=== PATIENT | male | born 1940 | race Caucasian/White ===

== ENCOUNTER 2017-08-08 10:22 | Inpatient (IN) | payer MEDICARE, OTHER ==
[~2017-08-08 10:22] MED LIST: Acetaminophen 500 MG Tab PO SCH; Famotidine 20 MG/2 ML SDV IVPUSH SCH; Ketorolac 30 MG/ML SDV IVPUSH SCH; Ropivacaine 49.25 ML, Ketorolac 30 MG, EPINEPHrine 0.5 MG, cloNIDine 80 MCG in Sodium C... INJECT ONE; Scopolamine 1.5 MG Transdermal Patch TRDERM SCH; ceFAZolin 2 GM in Premix Bag 1 BAG IV SCH; oxyCODONE ER 20 MG TAB.ER PO SCH
[2017-08-08] MEDS: Lactated Ringers 1,000 ML IV SCH ×2 (10:58→16:57)
--- NOTE | 2017-08-08 11:09 | PCM.PREANE ---
Preanesthetic Assessment - Procedure Proposed Procedure: Right TKA - Anesthesia/Transfusion/Family Hx Anesthesia History: Prior Anesthesia Without Reaction Family History of Anesthesia Reaction: No Transfusion History: No Prior Transfusion(s) Intubation History: Unknown - Review of Systems General: Other (Obesity) Pulmonary: Other (COPD/Smoker/Sleep apnea - CPAP daily; uses full face mask, has his CPAP unit with him) Cardiovascular: Other (Hypertension and hypercholesterolemia) Gastrointestinal: No Symptoms Neurological: Gait Disturbance (due to knee pain) Other: Reports: None - Physical Assessment NPO Status Date: 08/07/17 NPO Status Time: 07:00 (took AM pill) Height: 5 ft 9 in Weight: 208 lb ASA Class: 3 Mental Status: Alert & Oriented x3 Airway Class: Mallampati = 2 Dentition: Reports: Normal Dentition, [place](s) (none loose) Thyro-Mental Finger Breadths: 3 Mouth Opening Finger Breadths: 3 (sloped soft palate) Lungs: Clear to Auscultation, Normal Respiratory Effort Cardiovascular: Regular Rate, Regular Rhythm, No Murmurs - Allergies Allergies/Adverse Reactions: Allergies Allergy/AdvReac Type Severity Reaction Status Date / Time No Known Allergies Allergy Verified 08/08/17 11:45 - Blood Blood Available: Yes Product(s) Available: PRBC (T and S) - Anesthesia Plan Pre-Op Medication Ordered: Other (per surgeon protocol) Beta Fabián: Metoprolol - Acknowledgements Anesthesia Type Planned: General Anesthesia (probable due to OAS hx), Spinal Pt an Appropriate Candidate for the Planned Anesthesia: Yes Alternatives and Risks of Anesthesia Discussed w Pt/Guardian: Yes Pt/Guardian Understands and Agrees with Anesthesia Plan: Yes PreAnesthesia Questionnaire HEENT History: Reports: Cataract Other HEENT History: sometimes wears glasses Cardiovascular History: Reports: High Cholesterol, Hypertension Respiratory History: Reports: Sleep Apnea Other Respiratory History: uses CPAP Gastrointestinal History: Reports: None Genitourinary History: Reports: BPH Other Genitourinary History: BPH Musculoskeletal History: Reports: Arthritis, Gout Other Musculoskeletal History: chronic hip pain Neurological History: Reports: None Psychiatric History: Reports: None Endocrine/Metabolic History: Reports: Obesity/BMI 30+ Other Endocrine/Metabolic History: Gout Hematologic History: Reports: None Immunologic History: Reports: None Oncologic (Cancer) History: Reports: None Dermatologic History: Reports: None - Past Surgical History Head Surgeries/Procedures: Reports: None HEENT Surgical History: Reports: Naso-Sinus Surgery, Tonsillectomy GI Surgical History: Reports: Colonoscopy Musculoskeletal Surgical History: Reports: Carpal Tunnel, Knee Replacement Other Musculoskeletal Surgeries/Procedures:: bilateral carpal tunnel release, Left TKA, replacement of left great toe joint, hammer toe left foot, second toe - SUBSTANCE USE Smoking Status *Q: Current Some Day Smoker Tobacco Use Within Last Twelve Months: Cigars, Pipe Days Per Week of Alcohol Use: 1 Number of Drinks Per Day: 1 Total Drinks Per Week: 1 Recreational Drug Use History: No - HOME MEDS Home Medications: Home Meds Allopurinol [Zyloprim] 300 mg PO DAILY 04/22/16 [History] Meloxicam 15 mg PO DAILY 04/22/16 [History] Metoprolol Succinate [Toprol XL 100mg] 50 mg PO DAILY 04/22/16 [History] Pravastatin Sodium [Pravachol] 40 mg PO BEDTIME 04/22/16 [History] Ramipril [Altace] 10 mg PO DAILY 04/22/16 [History] Tamsulosin HCl 0.4 mg PO DAILY 04/22/16 [History] Verapamil HCl [Calan Sr] 240 mg PO BEDTIME 04/22/16 [History] Zolpidem Tartrate 1 tab PO BEDTIME PRN 04/22/16 [History] - CURRENT (IN HOUSE) MEDS Current Meds: Current Medications Acetaminophen (Tylenol Extra Strength) 1,000 mg PO ONARRIVE [facility] Famotidine (Pepcid) 40 mg IVPUSH ONARRIVE [facility] Cefazolin Sodium/Dextrose 2 gm (/ Premix) 50 mls @ 100 mls/hr IV ONCALL [facility] Lactated Ringer's (Ringers, Lactated) 1,000 mls @ 100 mls/hr IV ASDIRECTED [facility] Ketorolac Tromethamine (Toradol) 30 mg IVPUSH ONARRIVE [facility] Oxycodone HCl (Oxycontin) 20 mg PO ONARRIVE [facility] Scopolamine (Transderm-Scop) 1.5 mg TRDERM ONARRIVE [facility] Tranexamic Acid (Cyklokapron) 4,000 mg IV SEECOMMENT MORGAN Discontinued Medications Ropivacaine 49.25 ml/Ketorolac Tromethamine 30 mg/Epinephrine HCl 0.5 mg/ Clonidine HCl 80 mcg/ Sodium Chloride 100 mls @ 50 mls/min INJECT ONETIME ONE Stop: 08/08/17 06:01
[2017-08-08] MEDS ORDERED: fentaNYL 100 MCG/2 ML SDV ONE (11:35)
[2017-08-08] MEDS ORDERED: Propofol 200 MG/20 ML SDV ONE ×3 (11:35→14:44)
[2017-08-08] MEDS ORDERED: Midazolam 1 MG/ML 2 ML SDV ONE ×2 (11:35)
[2017-08-08] MEDS ORDERED: fentaNYL 250 MCG/5 ML SDV ONE (11:35)
[2017-08-08] MEDS ORDERED: Lidocaine 2% 5 ML SDV ONE (11:37)
[2017-08-08] MEDS ORDERED: ceFAZolin 1 GM Vial ONE (11:38)
[2017-08-08] MEDS ORDERED: ePHEDrine 50 MG/ML SDV ONE (13:15)
[2017-08-08] MEDS ORDERED: fentaNYL 100 MCG/2 ML SDV IVPUSH PRN (13:57)
[2017-08-08] MEDS ORDERED: Atropine 0.4 MG/ML SDV ONE (14:11)
[2017-08-08] MEDS ORDERED: Bisacodyl 10 MG Supp RECTAL PRN (15:25)
[2017-08-08] MEDS ORDERED: diphenhydrAMINE 25 MG Cap PO PRN (15:25)
[2017-08-08] MEDS ORDERED: Ondansetron 4 MG/2 ML SDV IV PRN (15:25)
--- NOTE | 2017-08-08 15:29 | PCM.OPNOTE ---
- General Post-Op/Procedure Note Date of Surgery/Procedure: 08/08/17 Operative Procedure(s): R TKA Post-Op Diagnosis: DJD R knee Anesthesia Technique: Moderate Sedation, Spinal Primary Surgeon: Marleny Livingston [employer] Operator: Sundeep Guzman in mLs: 50 Condition: Good Free Text/Narrative:: tt=60 min #[id number] Intake & Output 08/08/17 08/08/17 08/08/17 06:59 14:59 22:59 Output Total 125 Balance -125
--- NOTE | 2017-08-08 16:02 | PCM.POSTAN ---
POST ANESTHESIA ASSESSMENT - MENTAL STATUS Mental Status: Alert - VITAL SIGNS Pulse Rate: 71 SaO2: 94 Resp Rate: 16 Blood Pressure: 92/72 - RESPIRATORY Respiratory Status: Respiratory Rate WNL - CARDIOVASCULAR CV Status: Pulse Rate WNL - GASTROINTESTINAL GI Status: No Symptoms - POST OP HYDRATION Hydration Status: Adequate & Stable (moving legs. sensory level approx t 10)
[2017-08-08] MEDS: Acetaminophen 500 MG Tab PO SCH ×2 (16:51→21:22)
[2017-08-08] MEDS: Ketorolac 30 MG/ML SDV IVPUSH SCH ×2 (16:52→21:23)
--- NOTE | 2017-08-08 17:02 | CR ---
EXAMINATION: Right knee HISTORY: Total knee arthroplasty COMPARISON: 05/03/2017 TECHNIQUE: 2 views FINDINGS/IMPRESSION: Right total knee hardware is demonstrated in good position and alignment. Operat mike soft tissue changes are noted.
[2017-08-08] MEDS: oxyCODONE 5 MG Tab PO PRN (17:49)
[2017-08-08] MEDS: Docusate Sodium 100 MG Cap PO SCH (20:19)
[2017-08-08] MEDS: Verapamil 240 MG Tab.ER PO SCH (20:19)
[2017-08-08] MEDS: Pravastatin 40 MG Tab PO SCH (20:19)
[2017-08-08] MEDS: oxyCODONE ER 10 MG TAB.ER PO SCH (20:19)
[2017-08-08] MEDS: Aluminum Hydroxide/Magnesium Hydroxide/Simethicone Susp 30 ML Cup PO PRN (21:28)
[2017-08-08] MEDS: ceFAZolin 2 GM in Premix Bag 1 BAG IV SCH (21:29)
[2017-08-08] MEDS ORDERED: Sodium Chloride 0.9% 1,000 ML IV ONE (21:56)
[2017-08-09] MEDS: oxyCODONE 5 MG Tab PO PRN ×6 (00:23→23:27)
[2017-08-09] MEDS: Ketorolac 30 MG/ML SDV IVPUSH SCH (03:59)
[2017-08-09] MEDS: Acetaminophen 500 MG Tab PO SCH ×4 (03:59→20:56)
[2017-08-09] MEDS: ceFAZolin 2 GM in Premix Bag 1 BAG IV SCH (05:01)
[2017-08-09] MEDS: Lactated Ringers 1,000 ML IV SCH (05:40)
--- NOTE | 2017-08-09 07:52 | PCM48HPAN ---
Post Anesthesia Note - EVALUATION WITHIN 48HRS OF ANESTHETIC Vital Signs in Normal Range: Yes Patient Participated in Evaluation: Yes Respiratory Function Stable: Yes Airway Patent: Yes Cardiovascular Function Stable: Yes (patients only complaint is that he feels dizzy at times) Hydration Status Stable: Yes Pain Control Satisfactory: Yes Nausea and Vomiting Control Satisfactory: Yes Mental Status Recovered: Yes
[2017-08-09] MEDS ORDERED: Sodium Chloride 0.9% 2.5 ML Syringe FLUSH PRN (08:15)
[2017-08-09] MEDS ORDERED: Sodium Chloride 0.9% 10 ML Syringe FLUSH PRN (08:15)
[2017-08-09] MEDS: Allopurinol 300 MG Tab PO SCH (08:22)
[2017-08-09] MEDS: Aspirin 325 MG Tab PO SCH ×2 (08:22→20:57)
[2017-08-09] MEDS: oxyCODONE ER 10 MG TAB.ER PO SCH ×2 (08:22→20:55)
[2017-08-09] MEDS: Docusate Sodium 100 MG Cap PO SCH ×2 (08:22→20:57)
[2017-08-09] MEDS: Tamsulosin 0.4 MG Cap.ER PO SCH (08:23)
[2017-08-09] MEDS: Celecoxib 100 MG Cap PO SCH (08:23)
--- NOTE | 2017-08-09 08:43 | PCM.SURGPN ---
<Sundeep Guzman - Last Filed: 08/09/17 08:44> - General Info Date of Service: 08/09/17 Date of Surgery/Procedure: 08/08/17 POD#: 1 Functional Status: Reports: Pain Controlled, Tolerating Diet, Ambulating - Review of Systems General: Reports: No Symptoms Pulmonary: Reports: No Symptoms Cardiovascular: Reports: No Symptoms Gastrointestinal: Reports: No Symptoms Genitourinary: Reports: No Symptoms Musculoskeletal: Reports: Leg Pain, Joint Pain, Joint Swelling Neurological: Reports: No Symptoms Psychiatric: Reports: No Symptoms - Patient Data Vitals - Most Recent: Last Vital Signs Temp 36.3 C 08/09/17 08:00 Pulse 66 08/09/17 08:00 Resp 18 08/09/17 08:00 BP 110/60 08/09/17 08:26 Pulse Ox 95 08/09/17 08:00 Weight - Most Recent: 94.347 kg I&O - Last 24 Hours: Intake & Output 08/08/17 08/09/17 08/09/17 22:59 06:59 14:59 Intake Total 1650 3065 Output Total 90 375 Balance 1560 2690 Lab Results Last 24 Hrs: Laboratory Results - last 24 hr 08/08/17 08/09/17 Range/Units 10:58 07:05 Hgb 12.4 L (13.0-17.0) g/dL Hct 37.8 L (38.0-50.0) % Blood Type A POSITIVE Antibody Screen NEGATIVE Med Orders - Current: Current Medications Acetaminophen (Tylenol Extra Strength) 1,000 mg PO Q6H [facility] Last Admin: 08/09/17 08:39 Dose: 1,000 mg Al Hydroxide/Mg Hydroxide (Mag-Al Plus) 30 ml PO Q4H PRN PRN Reason: indigestion Last Admin: 08/08/17 21:28 Dose: 30 ml Allopurinol (Zyloprim) 300 mg PO DAILY [facility] Last Admin: 08/09/17 08:22 Dose: 300 mg Aspirin (Aspirin) 325 mg PO BID [facility] Last Admin: 08/09/17 08:22 Dose: 325 mg Bisacodyl (Dulcolax) 10 mg RECTAL DAILY PRN PRN Reason: Constipation Celecoxib (Celebrex) 200 mg PO DAILY [facility] Last Admin: 08/09/17 08:23 Dose: 200 mg Diphenhydramine HCl (Benadryl) 25 - 50 mg PO Q6H PRN PRN Reason: Itching Docusate Sodium (Colace) 100 mg PO BID [facility] Last Admin: 08/09/17 08:22 Dose: 100 mg Lactated Ringer's (Ringers, Lactated) 1,000 mls @ 100 mls/hr IV ASDIRECTED [facility] Last Admin: 08/09/17 05:40 Dose: 100 mls/hr Ketorolac Tromethamine (Toradol) 30 mg IVPUSH Q6H [facility] Stop: 08/09/17 09:00 Last Admin: 08/09/17 03:59 Dose: Not Given Morphine Sulfate (Morphine) 1 - 3 mg IVPUSH Q3H PRN PRN Reason: Pain Ondansetron HCl (Zofran) 4 mg IV Q6HR PRN PRN Reason: NAUSEA/VOMITING Last Admin: 08/08/17 22:17 Dose: 4 mg Oxycodone HCl (Oxycodone) 5 - 10 mg PO Q4H PRN PRN Reason: Pain Last Admin: 08/09/17 06:08 Dose: 10 mg Oxycodone HCl (Oxycontin) 10 mg PO Q12HR [facility] Last Admin: 08/09/17 08:22 Dose: 10 mg Pravastatin Sodium (Pravachol) 40 mg PO BEDTIME [facility] Last Admin: 08/08/17 20:19 Dose: 40 mg Ramipril (Altace) 10 mg PO DAILY [facility] Last Admin: 08/09/17 08:26 Dose: Not Given Scopolamine (Transderm-Scop) 1.5 mg TRDERM ONARRIVE [facility] Last Admin: 08/08/17 10:59 Dose: 1.5 mg Sodium Chloride (Saline Flush) 10 ml FLUSH ASDIRECTED PRN PRN Reason: Keep Vein Open Sodium Chloride (Saline Flush) 2.5 ml FLUSH ASDIRECTED PRN PRN Reason: Keep Vein Open Tamsulosin HCl (Flomax) 0.4 mg PO DAILY [facility] Last Admin: 08/09/17 08:23 Dose: 0.4 mg Verapamil HCl (Calan Sr) 240 mg PO BEDTIME [facility] Last Admin: 08/08/17 20:19 Dose: 240 mg Zaleplon (Sonata) 5 mg PO BEDTIME PRN PRN Reason: Insomnia Discontinued Medications Acetaminophen (Tylenol Extra Strength) 1,000 mg PO ONARRIVE [facility] Last Admin: 08/08/17 11:18 Dose: 1,000 mg Atropine Sulfate (Atropine) Confirm Administered Dose 0.4 mg .ROUTE .STK-MED ONE Stop: 08/08/17 14:12 Cefazolin Sodium (Ancef) Confirm Administered Dose 2 gm .ROUTE .STK-MED ONE Stop: 08/08/17 11:39 Ephedrine Sulfate (Ephedrine Sulfate) Confirm Administered Dose 50 mg .ROUTE .STK-MED ONE Stop: 08/08/17 13:16 Famotidine (Pepcid) 40 mg IVPUSH ONARRIVE [facility] Last Admin: 08/08/17 11:10 Dose: 40 mg Fentanyl (Sublimaze) Confirm Administered Dose 250 mcg .ROUTE .STK-MED ONE Stop: 08/08/17 11:36 Fentanyl (Sublimaze) Confirm Administered Dose 100 mcg .ROUTE .STK-MED ONE Stop: 08/08/17 11:36 Fentanyl (Sublimaze) 50 mcg IVPUSH Q5M PRN PRN Reason: Pain (severe 7-10) Stop: 08/08/17 17:00 Glycopyrrolate () Confirm Administered Dose 1 mg .ROUTE .STK-MED ONE Stop: 08/08/17 14:09 Ropivacaine 49.25 ml/Ketorolac Tromethamine 30 mg/Epinephrine HCl 0.5 mg/ Clonidine HCl 80 mcg/ Sodium Chloride 100 mls @ 50 mls/min INJECT ONETIME ONE Stop: 08/08/17 06:01 Cefazolin Sodium/Dextrose 2 gm (/ Premix) 50 mls @ 100 mls/hr IV Q8H [facility] Stop: 08/09/17 05:59 Last Admin: 08/09/17 05:01 Dose: 100 mls/hr Sodium Chloride (Normal Saline) 1,000 mls @ 500 mls/hr IV ONETIME ONE Stop: 08/08/17 23:55 Last Admin: 08/08/17 22:14 Dose: 500 mls/hr Ketorolac Tromethamine (Toradol) 30 mg IVPUSH ONARRIVE [facility] Last Admin: 08/08/17 11:08 Dose: 30 mg Lidocaine (Xylocaine-Mpf 2%) Confirm Administered Dose 5 ml .ROUTE .STK-MED ONE Stop: 08/08/17 11:38 Metoprolol Succinate (Toprol Xl) 50 mg PO DAILY [facility] Midazolam HCl (Versed 1 Mg/Ml) Confirm Administered Dose 2 mg .ROUTE .STK-MED ONE Stop: 08/08/17 11:36 Midazolam HCl (Versed 1 Mg/Ml) Confirm Administered Dose 2 mg .ROUTE .STK-MED ONE Stop: 08/08/17 11:36 Oxycodone HCl (Oxycontin) 20 mg PO ONARRIVE [facility] Last Admin: 08/08/17 11:25 Dose: 20 mg Propofol (Diprivan 20 Ml) Confirm Administered Dose 200 mg .ROUTE .STK-MED ONE Stop: 08/08/17 11:36 Propofol (Diprivan 20 Ml) Confirm Administered Dose 400 mg .ROUTE .STK-MED ONE Stop: 08/08/17 13:30 Propofol (Diprivan 20 Ml) Confirm Administered Dose 200 mg .ROUTE .STK-MED ONE Stop: 08/08/17 14:45 Tranexamic Acid (Cyklokapron) 4,000 mg IV SEECOMMENT [facility] - Exam Wound/Incisions: Dressing Dry and Intact General: Alert, Oriented HEENT: Pupils Equal, Pupils Reactive Neck: Trachea Midline Lungs: Normal Respiratory Effort Cardiovascular: Regular Rate Extremities: Other (Right anterior tibialis, extensor hallucis longus and gastrocnemius strength +5/5 bilaterally. Sensation intact. Dorsalis pedis and posterior tibial pulses +2 bilaterally. ) Neurological: No New Focal Deficit Psy/Mental Status: Alert, Normal Affect, Normal Mood - Problem List Review Problem List Initiated/Reviewed/Updated: Yes - My Orders Last 24 Hours: Active Orders 24 hr Category Date Time Status Patient Status [ADT] Routine ADT 08/08/17 11:20 Active Activity as Tolerated [RC] .Routine Care 08/08/17 15:25 Active Bradycardia-Neuroaxis [employer] [RC] ROUTINE Care 08/08/17 13:57 Active Communication Order [RC] ROUTINE Care 08/08/17 15:27 Active Hypertension-Neuroaxis [employer] [RC] ROUTINE Care 08/08/17 13:57 Active Hypotension-Neuroaxis [employer] [RC] ROUTINE Care 08/08/17 13:57 Active Intake and Output [RC] Q12H Care 08/08/17 15:24 Active Neurovascular Check [RC] Q2HR Care 08/08/17 15:24 Active Notify Provider Vital Signs [RC] ASDIRECTED Care 08/08/17 15:25 Active Oxygen Therapy [RC] ASDIRECTED Care 08/08/17 13:58 Active RT Incentive Spirometry [RC] ASDIRECTED Care 08/08/17 15:24 Active Urinary Catheter Removal [RC] Per Unit Routine Care 08/09/17 08:15 Active Vital Signs [RC] PER UNIT ROUTINE Care 08/08/17 13:57 Active Vital Signs [RC] Q4H Care 08/08/17 15:24 Active PT Evaluation and Treatment [CONS] Routine Cons 08/08/17 15:24 Active HEMOGLOBIN/HEMATOCRIT,HH [HEME] DAILY Lab 08/10/17 07:00 Ordered HEMOGLOBIN/HEMATOCRIT,HH [HEME] DAILY Lab 08/11/17 07:00 Ordered Acetaminophen [Tylenol Extra Strength] Med 08/08/17 15:30 Active 1,000 mg PO Q6H Allopurinol [Zyloprim] Med 08/09/17 09:00 Active 300 mg PO DAILY Alum Hydrox/Mag Hydrox/Simeth [Mag-Al Plus] Med 08/08/17 15:25 Active 30 ml PO Q4H PRN Aspirin Med 08/09/17 09:00 Active 325 mg PO BID Bisacodyl [Dulcolax] Med 08/08/17 15:25 Active 10 mg RECTAL DAILY PRN Celecoxib [CeleBREX] Med 08/09/17 09:00 Active 200 mg PO DAILY Docusate Sodium [Colace] Med 08/08/17 21:00 Active 100 mg PO BID Ketorolac [Toradol] Med 08/08/17 15:30 Active 30 mg IVPUSH Q6H Morphine Med 08/08/17 15:25 Active 1 - 3 mg IVPUSH Q3H PRN Ondansetron [Zofran] Med 08/08/17 15:25 Active 4 mg IV Q6HR PRN Pravastatin [Pravachol] Med 08/08/17 21:00 Active 40 mg PO BEDTIME Ramipril [Altace] Med 08/09/17 09:00 Active 10 mg PO DAILY Sodium Chloride 0.9% [Saline Flush] Med 08/09/17 08:15 Active 10 ml FLUSH ASDIRECTED PRN Sodium Chloride 0.9% [Saline Flush] Med 08/09/17 08:15 Active 2.5 ml FLUSH ASDIRECTED PRN Tamsulosin [Flomax] Med 08/09/17 09:00 Active 0.4 mg PO DAILY Verapamil [Calan SR] Med 08/08/17 21:00 Active 240 mg PO BEDTIME Zaleplon [Sonata] Med 08/08/17 15:27 Active 5 mg PO BEDTIME PRN diphenhydrAMINE [Benadryl] Med 08/08/17 15:25 Active 25 - 50 mg PO Q6H PRN oxyCODONE Med 08/08/17 15:25 Active 5 - 10 mg PO Q4H PRN oxyCODONE ER [OxyCONTIN] Med 08/08/17 21:00 Active 10 mg PO Q12HR Convert IV to Saline Lock [OM.PC] Routine Oth 08/09/17 08:15 Ordered Ice Therapy [OM.PC] Routine Oth 08/08/17 15:24 Ordered Medication Orders Acetaminophen (Tylenol Extra Strength) 1,000 mg PO Q6H [facility] Last Admin: 08/09/17 08:39 Dose: 1,000 mg Admin: 08/09/17 03:59 Dose: Not Given Admin: 08/08/17 21:22 Dose: 1,000 mg Admin: 08/08/17 16:51 Dose: 1,000 mg Al Hydroxide/Mg Hydroxide (Mag-Al Plus) 30 ml PO Q4H PRN PRN Reason: indigestion Last Admin: 08/08/17 21:28 Dose: 30 ml Allopurinol (Zyloprim) 300 mg PO DAILY [facility] Last Admin: 08/09/17 08:22 Dose: 300 mg Aspirin (Aspirin) 325 mg PO BID [facility] Last Admin: 08/09/17 08:22 Dose: 325 mg Bisacodyl (Dulcolax) 10 mg RECTAL DAILY PRN PRN Reason: Constipation Celecoxib (Celebrex) 200 mg PO DAILY [facility] Last Admin: 08/09/17 08:23 Dose: 200 mg Diphenhydramine HCl (Benadryl) 25 - 50 mg PO Q6H PRN PRN Reason: Itching Docusate Sodium (Colace) 100 mg PO BID [facility] Last Admin: 08/09/17 08:22 Dose: 100 mg Admin: 08/08/17 20:19 Dose: 100 mg Lactated Ringer's (Ringers, Lactated) 1,000 mls @ 100 mls/hr IV ASDIRECTED [facility] Last Admin: 08/09/17 05:40 Dose: 100 mls/hr Infusion: 08/09/17 02:57 Dose: 100 mls/hr Admin: 08/08/17 16:57 Dose: 100 mls/hr Infusion: 08/08/17 16:57 Dose: 100 mls/hr Admin: 08/08/17 10:58 Dose: 100 mls/hr Ketorolac Tromethamine (Toradol) 30 mg IVPUSH Q6H [facility] Stop: 08/09/17 09:00 Last Admin: 08/09/17 03:59 Dose: Not Given Admin: 08/08/17 21:23 Dose: 30 mg Admin: 08/08/17 16:52 Dose: 30 mg Morphine Sulfate (Morphine) 1 - 3 mg IVPUSH Q3H PRN PRN Reason: Pain Ondansetron HCl (Zofran) 4 mg IV Q6HR PRN PRN Reason: NAUSEA/VOMITING Last Admin: 08/08/17 22:17 Dose: 4 mg Oxycodone HCl (Oxycodone) 5 - 10 mg PO Q4H PRN PRN Reason: Pain Last Admin: 08/09/17 06:08 Dose: 10 mg Admin: 08/09/17 00:23 Dose: 5 mg Admin: 08/08/17 17:49 Dose: 10 mg Oxycodone HCl (Oxycontin) 10 mg PO Q12HR [facility] Last Admin: 08/09/17 08:22 Dose: 10 mg Admin: 08/08/17 20:19 Dose: 10 mg Pravastatin Sodium (Pravachol) 40 mg PO BEDTIME [facility] Last Admin: 08/08/17 20:19 Dose: 40 mg Ramipril (Altace) 10 mg PO DAILY [facility] Last Admin: 08/09/17 08:26 Dose: Scopolamine (Transderm-Scop) 1.5 mg TRDERM ONARRIVE [facility] Last Admin: 08/08/17 10:59 Dose: 1.5 mg Sodium Chloride (Saline Flush) 10 ml FLUSH ASDIRECTED PRN PRN Reason: Keep Vein Open Sodium Chloride (Saline Flush) 2.5 ml FLUSH ASDIRECTED PRN PRN Reason: Keep Vein Open Tamsulosin HCl (Flomax) 0.4 mg PO DAILY [facility] Last Admin: 08/09/17 08:23 Dose: 0.4 mg Verapamil HCl (Calan Sr) 240 mg PO BEDTIME [facility] Last Admin: 08/08/17 20:19 Dose: 240 mg Zaleplon (Sonata) 5 mg PO BEDTIME PRN PRN Reason: Insomnia - Assessment Assessment (Free Text/Narrative):: Patient up to chair this AM. Pain well controlled overnight. Tolerating diet. Patient did receive bolus of 1 L normal saline last night due to low BP and UO. VSS. Hgb 12.4. UO 590 mL. - Plan Plan (Free Text/Narrative):: Continue physical therapy. Continue PO pain management. Start Aspirin 325mg PO BID for DVT prophylaxis. Due to low UO, repeat 1L NS fluid bolus today. Patient may go home today after therapy if UO increases. <Marleny Livingston - Last Filed: 08/09/17 17:23> - Patient Data Vitals - Most Recent: Last Vital Signs Temp 98.3 F 08/09/17 16:00 Pulse 80 08/09/17 16:00 Resp 18 08/09/17 16:00 BP 129/91 H 08/09/17 16:00 Pulse Ox 97 08/09/17 16:00 I&O - Last 24 Hours: Intake & Output 08/09/17 08/09/17 08/09/17 06:59 14:59 22:59 Intake Total 3065 1000 2100 Output Total 375 700 Balance 2690 1000 1400 Lab Results Last 24 Hrs: Laboratory Results - last 24 hr 08/09/17 Range/Units 07:05 Hgb 12.4 L (13.0-17.0) g/dL Hct 37.8 L (38.0-50.0) % Med Orders - Current: Current Medications Acetaminophen (Tylenol Extra Strength) 1,000 mg PO Q6H [facility] Last Admin: 08/09/17 14:47 Dose: 1,000 mg Al Hydroxide/Mg Hydroxide (Mag-Al Plus) 30 ml PO Q4H PRN PRN Reason: indigestion Last Admin: 08/08/17 21:28 Dose: 30 ml Allopurinol (Zyloprim) 300 mg PO DAILY [facility] Last Admin: 08/09/17 08:22 Dose: 300 mg Aspirin (Aspirin) 325 mg PO BID [facility] Last Admin: 08/09/17 08:22 Dose: 325 mg Bisacodyl (Dulcolax) 10 mg RECTAL DAILY PRN PRN Reason: Constipation Celecoxib (Celebrex) 200 mg PO DAILY [facility] Last Admin: 08/09/17 08:23 Dose: 200 mg Diphenhydramine HCl (Benadryl) 25 - 50 mg PO Q6H PRN PRN Reason: Itching Docusate Sodium (Colace) 100 mg PO BID [facility] Last Admin: 08/09/17 08:22 Dose: 100 mg Morphine Sulfate (Morphine) 1 - 3 mg IVPUSH Q3H PRN PRN Reason: Pain Last Admin: 08/09/17 09:44 Dose: 3 mg Ondansetron HCl (Zofran) 4 mg IV Q6HR PRN PRN Reason: NAUSEA/VOMITING Last Admin: 08/08/17 22:17 Dose: 4 mg Oxycodone HCl (Oxycodone) 5 - 10 mg PO Q4H PRN PRN Reason: Pain Last Admin: 08/09/17 14:47 Dose: 10 mg Oxycodone HCl (Oxycontin) 10 mg PO Q12HR [facility] Last Admin: 08/09/17 08:22 Dose: 10 mg Pravastatin Sodium (Pravachol) 40 mg PO BEDTIME [facility] Last Admin: 08/08/17 20:19 Dose: 40 mg Ramipril (Altace) 10 mg PO DAILY [facility] Last Admin: 08/09/17 08:26 Dose: Not Given Scopolamine (Transderm-Scop) 1.5 mg TRDERM ONARRIVE [facility] Last Admin: 08/08/17 10:59 Dose: 1.5 mg Sodium Chloride (Saline Flush) 10 ml FLUSH ASDIRECTED PRN PRN Reason: Keep Vein Open Sodium Chloride (Saline Flush) 2.5 ml FLUSH ASDIRECTED PRN PRN Reason: Keep Vein Open Tamsulosin HCl (Flomax) 0.4 mg PO DAILY [facility] Last Admin: 08/09/17 08:23 Dose: 0.4 mg Verapamil HCl (Calan Sr) 240 mg PO BEDTIME [facility] Last Admin: 08/08/17 20:19 Dose: 240 mg Zaleplon (Sonata) 5 mg PO BEDTIME PRN PRN Reason: Insomnia Discontinued Medications Acetaminophen (Tylenol Extra Strength) 1,000 mg PO ONARRIVE [facility] Last Admin: 08/08/17 11:18 Dose: 1,000 mg Atropine Sulfate (Atropine) Confirm Administered Dose 0.4 mg .ROUTE .STK-MED ONE Stop: 08/08/17 14:12 Cefazolin Sodium (Ancef) Confirm Administered Dose 2 gm .ROUTE .STK-MED ONE Stop: 08/08/17 11:39 Ephedrine Sulfate (Ephedrine Sulfate) Confirm Administered Dose 50 mg .ROUTE .STK-MED ONE Stop: 08/08/17 13:16 Famotidine (Pepcid) 40 mg IVPUSH ONARRIVE [facility] Last Admin: 08/08/17 11:10 Dose: 40 mg Fentanyl (Sublimaze) Confirm Administered Dose 250 mcg .ROUTE .STK-MED ONE Stop: 08/08/17 11:36 Fentanyl (Sublimaze) Confirm Administered Dose 100 mcg .ROUTE .STK-MED ONE Stop: 08/08/17 11:36 Fentanyl (Sublimaze) 50 mcg IVPUSH Q5M PRN PRN Reason: Pain (severe 7-10) Stop: 08/08/17 17:00 Glycopyrrolate () Confirm Administered Dose 1 mg .ROUTE .STK-MED ONE Stop: 08/08/17 14:09 Ropivacaine 49.25 ml/Ketorolac Tromethamine 30 mg/Epinephrine HCl 0.5 mg/ Clonidine HCl 80 mcg/ Sodium Chloride 100 mls @ 50 mls/min INJECT ONETIME ONE Stop: 08/08/17 06:01 Lactated Ringer's (Ringers, Lactated) 1,000 mls @ 100 mls/hr IV ASDIRECTED [facility] Last Admin: 08/09/17 05:40 Dose: 100 mls/hr Cefazolin Sodium/Dextrose 2 gm (/ Premix) 50 mls @ 100 mls/hr IV Q8H [facility] Stop: 08/09/17 05:59 Last Admin: 08/09/17 05:01 Dose: 100 mls/hr Sodium Chloride (Normal Saline) 1,000 mls @ 500 mls/hr IV ONETIME ONE Stop: 08/08/17 23:55 Last Admin: 08/08/17 22:14 Dose: 500 mls/hr Sodium Chloride (Normal Saline) 1,000 mls @ 500 mls/hr IV .Bolus ONE Stop: 08/09/17 10:47 Last Admin: 08/09/17 09:43 Dose: 500 mls/hr Ketorolac Tromethamine (Toradol) 30 mg IVPUSH ONARRIVE [facility] Last Admin: 08/08/17 11:08 Dose: 30 mg Ketorolac Tromethamine (Toradol) 30 mg IVPUSH Q6H [facility] Stop: 08/09/17 09:00 Last Admin: 08/09/17 03:59 Dose: Not Given Lidocaine (Xylocaine-Mpf 2%) Confirm Administered Dose 5 ml .ROUTE .STK-MED ONE Stop: 08/08/17 11:38 Metoprolol Succinate (Toprol Xl) 50 mg PO DAILY [facility] Midazolam HCl (Versed 1 Mg/Ml) Confirm Administered Dose 2 mg .ROUTE .STK-MED ONE Stop: 08/08/17 11:36 Midazolam HCl (Versed 1 Mg/Ml) Confirm Administered Dose 2 mg .ROUTE .STK-MED ONE Stop: 08/08/17 11:36 Oxycodone HCl (Oxycontin) 20 mg PO ONARRIVE [facility] Last Admin: 08/08/17 11:25 Dose: 20 mg Propofol (Diprivan 20 Ml) Confirm Administered Dose 200 mg .ROUTE .STK-MED ONE Stop: 08/08/17 11:36 Propofol (Diprivan 20 Ml) Confirm Administered Dose 400 mg .ROUTE .STK-MED ONE Stop: 08/08/17 13:30 Propofol (Diprivan 20 Ml) Confirm Administered Dose 200 mg .ROUTE .STK-MED ONE Stop: 08/08/17 14:45 Tranexamic Acid (Cyklokapron) 4,000 mg IV SEECOMMENT [facility] - My Orders Last 24 Hours: Active Orders 24 hr Category Date Time Status HEMOGLOBIN/HEMATOCRIT,HH [HEME] DAILY Lab 08/10/17 07:00 Ordered HEMOGLOBIN/HEMATOCRIT,HH [HEME] DAILY Lab 08/11/17 07:00 Ordered Allopurinol [Zyloprim] Med 08/09/17 09:00 Active 300 mg PO DAILY Aspirin Med 08/09/17 09:00 Active 325 mg PO BID Celecoxib [CeleBREX] Med 08/09/17 09:00 Active 200 mg PO DAILY Docusate Sodium [Colace] Med 08/08/17 21:00 Active 100 mg PO BID Pravastatin [Pravachol] Med 08/08/17 21:00 Active 40 mg PO BEDTIME Ramipril [Altace] Med 08/09/17 09:00 Active 10 mg PO DAILY Sodium Chloride 0.9% [Saline Flush] Med 08/09/17 08:15 Active 10 ml FLUSH ASDIRECTED PRN Sodium Chloride 0.9% [Saline Flush] Med 08/09/17 08:15 Active 2.5 ml FLUSH ASDIRECTED PRN Tamsulosin [Flomax] Med 08/09/17 09:00 Active 0.4 mg PO DAILY Verapamil [Calan SR] Med 08/08/17 21:00 Active 240 mg PO BEDTIME oxyCODONE ER [OxyCONTIN] Med 08/08/17 21:00 Active 10 mg PO Q12HR Convert IV to Saline Lock [OM.PC] Routine Oth 08/09/17 08:15 Ordered Medication Orders Acetaminophen (Tylenol Extra Strength) 1,000 mg PO Q6H [facility] Last Admin: 08/09/17 14:47 Dose: 1,000 mg Admin: 08/09/17 08:39 Dose: 1,000 mg Admin: 08/09/17 03:59 Dose: Not Given Admin: 08/08/17 21:22 Dose: 1,000 mg Admin: 08/08/17 16:51 Dose: 1,000 mg Al Hydroxide/Mg Hydroxide (Mag-Al Plus) 30 ml PO Q4H PRN PRN Reason: indigestion Last Admin: 08/08/17 21:28 Dose: 30 ml Allopurinol (Zyloprim) 300 mg PO DAILY [facility] Last Admin: 08/09/17 08:22 Dose: 300 mg Aspirin (Aspirin) 325 mg PO BID [facility] Last Admin: 08/09/17 08:22 Dose: 325 mg Bisacodyl (Dulcolax) 10 mg RECTAL DAILY PRN PRN Reason: Constipation Celecoxib (Celebrex) 200 mg PO DAILY [facility] Last Admin: 08/09/17 08:23 Dose: 200 mg Diphenhydramine HCl (Benadryl) 25 - 50 mg PO Q6H PRN PRN Reason: Itching Docusate Sodium (Colace) 100 mg PO BID [facility] Last Admin: 08/09/17 08:22 Dose: 100 mg Admin: 08/08/17 20:19 Dose: 100 mg Morphine Sulfate (Morphine) 1 - 3 mg IVPUSH Q3H PRN PRN Reason: Pain Last Admin: 08/09/17 09:44 Dose: 3 mg Ondansetron HCl (Zofran) 4 mg IV Q6HR PRN PRN Reason: NAUSEA/VOMITING Last Admin: 08/08/17 22:17 Dose: 4 mg Oxycodone HCl (Oxycodone) 5 - 10 mg PO Q4H PRN PRN Reason: Pain Last Admin: 08/09/17 14:47 Dose: 10 mg Admin: 08/09/17 10:48 Dose: 10 mg Admin: 08/09/17 06:08 Dose: 10 mg Admin: 08/09/17 00:23 Dose: 5 mg Admin: 08/08/17 17:49 Dose: 10 mg Oxycodone HCl (Oxycontin) 10 mg PO Q12HR [facility] Last Admin: 08/09/17 08:22 Dose: 10 mg Admin: 08/08/17 20:19 Dose: 10 mg Pravastatin Sodium (Pravachol) 40 mg PO BEDTIME [facility] Last Admin: 08/08/17 20:19 Dose: 40 mg Ramipril (Altace) 10 mg PO DAILY [facility] Last Admin: 08/09/17 08:26 Dose: Scopolamine (Transderm-Scop) 1.5 mg TRDERM ONARRIVE [facility] Last Admin: 08/08/17 10:59 Dose: 1.5 mg Sodium Chloride (Saline Flush) 10 ml FLUSH ASDIRECTED PRN PRN Reason: Keep Vein Open Sodium Chloride (Saline Flush) 2.5 ml FLUSH ASDIRECTED PRN PRN Reason: Keep Vein Open Tamsulosin HCl (Flomax) 0.4 mg PO DAILY [facility] Last Admin: 08/09/17 08:23 Dose: 0.4 mg Verapamil HCl (Calan Sr) 240 mg PO BEDTIME [facility] Last Admin: 08/08/17 20:19 Dose: 240 mg Zaleplon (Sonata) 5 mg PO BEDTIME PRN PRN Reason: Insomnia - Plan Plan (Free Text/Narrative):: 1730 Patient seen and examined. AGree with above note. Uop much improved. Negrete d/c' d. Hgb stable. Slow with PT and some pain issues so will keep until tomorrow. Dressing change in am. Patient agrees with plan. [email or web address]
[2017-08-09] MEDS ORDERED: Sodium Chloride 0.9% 1,000 ML IV ONE (08:48)
--- NOTE | 2017-08-09 08:56 | OR ---
SURGEON: Marleny Livingston MD DATE OF PROCEDURE: 08/08/2017 PREOPERATIVE DIAGNOSIS: Degenerative joint disease, right knee, tricompartmental. POSTOPERATIVE DIAGNOSIS: Degenerative joint disease, right knee, tricompartmental. PROCEDURE: Right total knee arthroplasty using patient-specific instrumentation. TEACHER ADULT EDUCATION: Sundeep Guzman PA-C. ANESTHESIA: Spinal with sedation. ESTIMATED BLOOD LOSS: 50 mL. TOURNIQUET TIME: 60 minutes. COMPLICATIONS: None. DVT PROPHYLAXIS: PAS boot and CHYNA hose to the nonoperative leg. IMPLANTS USED: Nivia Persona femoral component size 10 (LPS), tibial component, size H, 10 mm all-polyethylene articular surface, and 38 mm all-polyethylene patella. 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 Osteophyte formation was noted. There was complete eburnation of the bone along the medial femoral condyle and medial tibial plateau. BRIEF HISTORY: Lew is a 77-year-old male, who has had complaint of progressive right knee pain. He was found to have tricompartmental degenerative changes. He has undergone a left total knee arthroplasty in the past and has done well with this. Due to his lack of response to conservative treatment, I did recommend surgical intervention. The risks and goals of the procedure were discussed with the patient and were documented preoperatively. He agreed to proceed. DESCRIPTION OF PROCEDURE: The patient was properly identified and brought to the operating room. The patient was then transferred from the operating room cart and placed on the operating table in a supine position. Anesthesia was administered by the anesthesia staff. After adequate anesthesia was obtained, a well-padded tourniquet was applied to the surgical lower extremity. Negrete catheter was placed. The lower extremity was then prepped in standard fashion using ChloraPrep solution. It was then sterilely draped. A time-out was performed to ensure correct site and procedure. Preoperative antibiotics were given along with one gram of tranexamic acid IV. The surgical site had been marked preoperatively. An Esmarch was used to exsanguinate the right lower extremity and the tourniquet was inflated. An incision was made over the anterior aspect of the knee. The subcutaneous tissues were dissected down to the level of the fascia. A medial parapatellar approach to the knee was made. A portion of the infrapatellar fat pad was then excised. The distal femur was then exposed. The femoral patient-specific cutting guide was then placed. Pins were also placed. The distal femoral cutting block was placed and the distal femoral cut was made. Instrumentation was then removed. Both Whitesides' line and the epicondylar axis were then marked with electrocautery. The 4-in-1 cutting block was placed. This was placed in a slightly externally rotated position, which corresponded well with the previously drawn lines. The cutting guide was then pinned into position. An Pancho wing guide was used to check the depth of resection of our anterior condylar cut and it was felt that no notching would occur. The anterior condylar cut was then made followed by the posterior condylar cut. Both the posterior chamfer and anterior chamfer cuts were then made. The cutting block was then removed along with the excess bony remnants. We then turned our attention to the tibia. The anterior cruciate ligament and posterior cruciate ligament were released and a posterior cruciate ligament retractor was placed to allow the tibia to be pulled anteriorly. The tibial patient-specific guide was then placed on the proximal tibia. This fit anatomically. The pins were then placed. The proximal tibia cutting guide was then placed and screwed into position. The proximal tibial resection was then made with care being taken to protect the patellar tendon. The bony resection was then removed. The remainder of the medial and lateral meniscus were then excised. Care was taken to protect the popliteus tendon. The tibia was then sized to the appropriate size. The distal femur was then elevated. The posterior capsule was stripped off the distal femur both medially and laterally. The posterior capsule along with the medial and lateral gutters were then injected with a standard mixture consisting of clonidine, epinephrine, Toradol, and Ropivacaine, unless any allergies were found preoperatively. The femoral component was then placed onto the distal femur in a slightly lateral position. This fit the femur well. A box cut was then made without difficulty. This was then removed. The tibial trial along with the polyethylene liner was then placed. The knee came easily into full extension and was stable to varus and valgus stressing both in full extension and flexion. Any additional releases were performed at this time. We then returned our attention to the patella. The patella was everted and towel clamps were used to hold the patella in position. It was resected to a 15 millimeter thickness. It was then sized to the appropriate size. It was prepared in the usual fashion after placing the predetermined size clamps. This was placed in a slightly superior and medial position. The clamp was then removed. The patellar trial button was placed. The knee was taken through a range of motion using the no-touch technique. The patella tracked centrally. A drop carrie was then placed to check alignment. All instruments were then removed from the knee. The tibial sizer was then placed on the tibia. The tibia was prepared in the usual fashion using the reamer and broach. This was then removed. All bony surfaces were copiously irrigated with Pulsavac solution. They were then suctioned dry. Cement was prepared on the back table in the usual manner. Once it was prepared, the bone ends were again suctioned dry. The tibia was cemented into place first. This was malleted into position. Excess cement was then cleared. The femur was then placed in a similar manner. We placed the polyethylene trial into place and the knee was brought into full extension. An axial load was placed while keeping the knee in full extension. The patella button was also cemented into position and the clamp was used to hold this in place as the cement was allowed to cure. The wound was again copiously irrigated with saline solution using a Pulsavac final application reviewer. Following this 1 g of tranexamic acid was applied to the wound topically. After we had adequate curing of the cement, the knee was again taken through a range of motion. The size of the polyethylene was then determined. The polyethylene trial was then removed. The tibial tray was suctioned to make sure there was no remaining soft tissue or cement. Excess cement was cleared from around the edges of the prosthesis as well. The tourniquet was then deflated. We were able to observe for any excess bleeding and none was noted. Electrocautery was used to maintain hemostasis. An additional gram of tranexamic acid was given IV. The retractors were again placed and the predetermined polyethylene was then placed. This was locked into position without difficulty. The knee was again taken through a range of motion with no change from the prior exam. The fascial layer was closed with Number One Vicryl. The subcutaneous tissues were closed with 2-0 Vicryl. The skin was closed with trace. Xeroform gauze was placed over the wound and a bulky dressing was applied. The patient was then awakened from anesthesia and transferred back to the operating room cart. He was brought to the recovery room in stable condition. All needle and sponge counts were correct. DANE VAIL /[id number]
[2017-08-09] MEDS ORDERED: Metoprolol Succinate 50 MG Tab.ER PO SCH (09:00)
[2017-08-09] MEDS: Morphine 4 MG/ML Syringe IVPUSH PRN (09:44)
[2017-08-09] MEDS: Pravastatin 40 MG Tab PO SCH (20:55)
[2017-08-09] MEDS: Verapamil 240 MG Tab.ER PO SCH (20:56)
[2017-08-10] MEDS: Acetaminophen 500 MG Tab PO SCH ×2 (02:48→09:01)
[2017-08-10] MEDS: Morphine 4 MG/ML Syringe IVPUSH PRN ×2 (02:49→06:16)
[2017-08-10] MEDS: oxyCODONE 5 MG Tab PO PRN ×2 (04:03→10:27)
--- NOTE | 2017-08-10 07:57 | PCM.SURGPN ---
- General Info Date of Service: 08/10/17 Date of Surgery/Procedure: 08/08/17 POD#: 2 Functional Status: Reports: Pain Controlled, Tolerating Diet, Ambulating, Urinating - Review of Systems General: Reports: No Symptoms Pulmonary: Reports: No Symptoms Cardiovascular: Reports: No Symptoms Gastrointestinal: Reports: No Symptoms Genitourinary: Reports: No Symptoms Musculoskeletal: Reports: Back Pain, Joint Pain, Joint Swelling Neurological: Reports: Dizziness Psychiatric: Reports: No Symptoms - Patient Data Vitals - Most Recent: Last Vital Signs Temp 37.2 C 08/10/17 04:00 Pulse 92 08/10/17 04:00 Resp 18 08/10/17 04:00 BP 127/71 08/10/17 04:00 Pulse Ox 93 L 08/10/17 04:00 Weight - Most Recent: 94.347 kg I&O - Last 24 Hours: Intake & Output 08/09/17 08/10/17 08/10/17 22:59 06:59 14:59 Intake Total 2100 1000 Output Total 700 1475 Balance 1400 -475 Lab Results Last 24 Hrs: Laboratory Results - last 24 hr 08/10/17 Range/Units 04:12 Hgb 10.9 L (13.0-17.0) g/dL Hct 32.4 L (38.0-50.0) % Med Orders - Current: Current Medications Acetaminophen (Tylenol Extra Strength) 1,000 mg PO Q6H [facility] Last Admin: 08/10/17 02:48 Dose: 1,000 mg Al Hydroxide/Mg Hydroxide (Mag-Al Plus) 30 ml PO Q4H PRN PRN Reason: indigestion Last Admin: 08/08/17 21:28 Dose: 30 ml Allopurinol (Zyloprim) 300 mg PO DAILY [facility] Last Admin: 08/09/17 08:22 Dose: 300 mg Aspirin (Aspirin) 325 mg PO BID [facility] Last Admin: 08/09/17 20:57 Dose: 325 mg Bisacodyl (Dulcolax) 10 mg RECTAL DAILY PRN PRN Reason: Constipation Celecoxib (Celebrex) 200 mg PO DAILY [facility] Last Admin: 08/09/17 08:23 Dose: 200 mg Diphenhydramine HCl (Benadryl) 25 - 50 mg PO Q6H PRN PRN Reason: Itching Docusate Sodium (Colace) 100 mg PO BID [facility] Last Admin: 08/09/17 20:57 Dose: 100 mg Morphine Sulfate (Morphine) 1 - 3 mg IVPUSH Q3H PRN PRN Reason: Pain Last Admin: 08/10/17 06:16 Dose: 3 mg Ondansetron HCl (Zofran) 4 mg IV Q6HR PRN PRN Reason: NAUSEA/VOMITING Last Admin: 08/08/17 22:17 Dose: 4 mg Oxycodone HCl (Oxycodone) 5 - 10 mg PO Q4H PRN PRN Reason: Pain Last Admin: 08/10/17 04:03 Dose: 10 mg Oxycodone HCl (Oxycontin) 10 mg PO Q12HR [facility] Last Admin: 08/09/17 20:55 Dose: 10 mg Pravastatin Sodium (Pravachol) 40 mg PO BEDTIME [facility] Last Admin: 08/09/17 20:55 Dose: 40 mg Ramipril (Altace) 10 mg PO DAILY [facility] Last Admin: 08/09/17 08:26 Dose: Not Given Scopolamine (Transderm-Scop) 1.5 mg TRDERM ONARRIVE [facility] Last Admin: 08/08/17 10:59 Dose: 1.5 mg Sodium Chloride (Saline Flush) 10 ml FLUSH ASDIRECTED PRN PRN Reason: Keep Vein Open Sodium Chloride (Saline Flush) 2.5 ml FLUSH ASDIRECTED PRN PRN Reason: Keep Vein Open Tamsulosin HCl (Flomax) 0.4 mg PO DAILY [facility] Last Admin: 08/09/17 08:23 Dose: 0.4 mg Verapamil HCl (Calan Sr) 240 mg PO BEDTIME [facility] Last Admin: 08/09/17 20:56 Dose: 240 mg Zaleplon (Sonata) 5 mg PO BEDTIME PRN PRN Reason: Insomnia Last Admin: 08/09/17 23:27 Dose: 5 mg Discontinued Medications Acetaminophen (Tylenol Extra Strength) 1,000 mg PO ONARRIVE [facility] Last Admin: 08/08/17 11:18 Dose: 1,000 mg Atropine Sulfate (Atropine) Confirm Administered Dose 0.4 mg .ROUTE .STK-MED ONE Stop: 08/08/17 14:12 Cefazolin Sodium (Ancef) Confirm Administered Dose 2 gm .ROUTE .STK-MED ONE Stop: 08/08/17 11:39 Ephedrine Sulfate (Ephedrine Sulfate) Confirm Administered Dose 50 mg .ROUTE .STK-MED ONE Stop: 08/08/17 13:16 Famotidine (Pepcid) 40 mg IVPUSH ONARRIVE [facility] Last Admin: 08/08/17 11:10 Dose: 40 mg Fentanyl (Sublimaze) Confirm Administered Dose 250 mcg .ROUTE .STK-MED ONE Stop: 08/08/17 11:36 Fentanyl (Sublimaze) Confirm Administered Dose 100 mcg .ROUTE .STK-MED ONE Stop: 08/08/17 11:36 Fentanyl (Sublimaze) 50 mcg IVPUSH Q5M PRN PRN Reason: Pain (severe 7-10) Stop: 08/08/17 17:00 Glycopyrrolate () Confirm Administered Dose 1 mg .ROUTE .STK-MED ONE Stop: 08/08/17 14:09 Ropivacaine 49.25 ml/Ketorolac Tromethamine 30 mg/Epinephrine HCl 0.5 mg/ Clonidine HCl 80 mcg/ Sodium Chloride 100 mls @ 50 mls/min INJECT ONETIME ONE Stop: 08/08/17 06:01 Lactated Ringer's (Ringers, Lactated) 1,000 mls @ 100 mls/hr IV ASDIRECTED [facility] Last Admin: 08/09/17 05:40 Dose: 100 mls/hr Cefazolin Sodium/Dextrose 2 gm (/ Premix) 50 mls @ 100 mls/hr IV Q8H [facility] Stop: 08/09/17 05:59 Last Admin: 08/09/17 05:01 Dose: 100 mls/hr Sodium Chloride (Normal Saline) 1,000 mls @ 500 mls/hr IV ONETIME ONE Stop: 08/08/17 23:55 Last Admin: 08/08/17 22:14 Dose: 500 mls/hr Sodium Chloride (Normal Saline) 1,000 mls @ 500 mls/hr IV .Bolus ONE Stop: 08/09/17 10:47 Last Admin: 08/09/17 09:43 Dose: 500 mls/hr Ketorolac Tromethamine (Toradol) 30 mg IVPUSH ONARRIVE [facility] Last Admin: 08/08/17 11:08 Dose: 30 mg Ketorolac Tromethamine (Toradol) 30 mg IVPUSH Q6H [facility] Stop: 08/09/17 09:00 Last Admin: 08/09/17 03:59 Dose: Not Given Lidocaine (Xylocaine-Mpf 2%) Confirm Administered Dose 5 ml .ROUTE .STK-MED ONE Stop: 08/08/17 11:38 Metoprolol Succinate (Toprol Xl) 50 mg PO DAILY [facility] Midazolam HCl (Versed 1 Mg/Ml) Confirm Administered Dose 2 mg .ROUTE .STK-MED ONE Stop: 08/08/17 11:36 Midazolam HCl (Versed 1 Mg/Ml) Confirm Administered Dose 2 mg .ROUTE .STK-MED ONE Stop: 08/08/17 11:36 Oxycodone HCl (Oxycontin) 20 mg PO ONARRIVE [facility] Last Admin: 08/08/17 11:25 Dose: 20 mg Propofol (Diprivan 20 Ml) Confirm Administered Dose 200 mg .ROUTE .STK-MED ONE Stop: 08/08/17 11:36 Propofol (Diprivan 20 Ml) Confirm Administered Dose 400 mg .ROUTE .STK-MED ONE Stop: 08/08/17 13:30 Propofol (Diprivan 20 Ml) Confirm Administered Dose 200 mg .ROUTE .STK-MED ONE Stop: 08/08/17 14:45 Tranexamic Acid (Cyklokapron) 4,000 mg IV SEECOMMENT [facility] - Exam Wound/Incisions: Dressing Dry and Intact (Dressing changed today.) General: Alert, Oriented HEENT: Pupils Reactive Neck: Trachea Midline Lungs: Normal Respiratory Effort Cardiovascular: Regular Rate Extremities: Other (Right anterior tibialis, extensor hallucis longus and gastrocnemius strength +5/5 bilaterally. Sensation intact. Dorsalis pedis and posterior tibial pulses +2 bilaterally. ) Neurological: No New Focal Deficit Psy/Mental Status: Alert, Normal Affect, Normal Mood - Problem List Review Problem List Initiated/Reviewed/Updated: Yes - My Orders Last 24 Hours: Active Orders 24 hr Category Date Time Status HEMOGLOBIN/HEMATOCRIT,HH [HEME] DAILY Lab 08/11/17 07:00 Ordered Allopurinol [Zyloprim] Med 08/09/17 09:00 Active 300 mg PO DAILY Aspirin Med 08/09/17 09:00 Active 325 mg PO BID Celecoxib [CeleBREX] Med 08/09/17 09:00 Active 200 mg PO DAILY Ramipril [Altace] Med 08/09/17 09:00 Active 10 mg PO DAILY Sodium Chloride 0.9% [Saline Flush] Med 08/09/17 08:15 Active 10 ml FLUSH ASDIRECTED PRN Sodium Chloride 0.9% [Saline Flush] Med 08/09/17 08:15 Active 2.5 ml FLUSH ASDIRECTED PRN Tamsulosin [Flomax] Med 08/09/17 09:00 Active 0.4 mg PO DAILY Convert IV to Saline Lock [OM.PC] Routine Oth 08/09/17 08:15 Ordered Medication Orders Acetaminophen (Tylenol Extra Strength) 1,000 mg PO Q6H [facility] Last Admin: 08/10/17 02:48 Dose: 1,000 mg Admin: 08/09/17 20:56 Dose: 1,000 mg Admin: 08/09/17 14:47 Dose: 1,000 mg Admin: 08/09/17 08:39 Dose: 1,000 mg Admin: 08/09/17 03:59 Dose: Not Given Admin: 08/08/17 21:22 Dose: 1,000 mg Admin: 08/08/17 16:51 Dose: 1,000 mg Al Hydroxide/Mg Hydroxide (Mag-Al Plus) 30 ml PO Q4H PRN PRN Reason: indigestion Last Admin: 08/08/17 21:28 Dose: 30 ml Allopurinol (Zyloprim) 300 mg PO DAILY [facility] Last Admin: 08/09/17 08:22 Dose: 300 mg Aspirin (Aspirin) 325 mg PO BID [facility] Last Admin: 08/09/17 20:57 Dose: 325 mg Admin: 08/09/17 08:22 Dose: 325 mg Bisacodyl (Dulcolax) 10 mg RECTAL DAILY PRN PRN Reason: Constipation Celecoxib (Celebrex) 200 mg PO DAILY [facility] Last Admin: 08/09/17 08:23 Dose: 200 mg Diphenhydramine HCl (Benadryl) 25 - 50 mg PO Q6H PRN PRN Reason: Itching Docusate Sodium (Colace) 100 mg PO BID [facility] Last Admin: 08/09/17 20:57 Dose: 100 mg Admin: 08/09/17 08:22 Dose: 100 mg Admin: 08/08/17 20:19 Dose: 100 mg Morphine Sulfate (Morphine) 1 - 3 mg IVPUSH Q3H PRN PRN Reason: Pain Last Admin: 08/10/17 06:16 Dose: 3 mg Admin: 08/10/17 02:49 Dose: 3 mg Admin: 08/09/17 09:44 Dose: 3 mg Ondansetron HCl (Zofran) 4 mg IV Q6HR PRN PRN Reason: NAUSEA/VOMITING Last Admin: 08/08/17 22:17 Dose: 4 mg Oxycodone HCl (Oxycodone) 5 - 10 mg PO Q4H PRN PRN Reason: Pain Last Admin: 08/10/17 04:03 Dose: 10 mg Admin: 08/09/17 23:27 Dose: 10 mg Admin: 08/09/17 18:49 Dose: 10 mg Admin: 08/09/17 14:47 Dose: 10 mg Admin: 08/09/17 10:48 Dose: 10 mg Admin: 08/09/17 06:08 Dose: 10 mg Admin: 08/09/17 00:23 Dose: 5 mg Admin: 08/08/17 17:49 Dose: 10 mg Oxycodone HCl (Oxycontin) 10 mg PO Q12HR [facility] Last Admin: 08/09/17 20:55 Dose: 10 mg Admin: 08/09/17 08:22 Dose: 10 mg Admin: 08/08/17 20:19 Dose: 10 mg Pravastatin Sodium (Pravachol) 40 mg PO BEDTIME [facility] Last Admin: 08/09/17 20:55 Dose: 40 mg Admin: 08/08/17 20:19 Dose: 40 mg Ramipril (Altace) 10 mg PO DAILY [facility] Last Admin: 08/09/17 08:26 Dose: Scopolamine (Transderm-Scop) 1.5 mg TRDERM ONARRIVE [facility] Last Admin: 08/08/17 10:59 Dose: 1.5 mg Sodium Chloride (Saline Flush) 10 ml FLUSH ASDIRECTED PRN PRN Reason: Keep Vein Open Sodium Chloride (Saline Flush) 2.5 ml FLUSH ASDIRECTED PRN PRN Reason: Keep Vein Open Tamsulosin HCl (Flomax) 0.4 mg PO DAILY [facility] Last Admin: 08/09/17 08:23 Dose: 0.4 mg Verapamil HCl (Calan Sr) 240 mg PO BEDTIME [facility] Last Admin: 08/09/17 20:56 Dose: 240 mg Admin: 08/08/17 20:19 Dose: 240 mg Zaleplon (Sonata) 5 mg PO BEDTIME PRN PRN Reason: Insomnia Last Admin: 08/09/17 23:27 Dose: 5 mg - Assessment Assessment (Free Text/Narrative):: Patient up to chair this AM. Pain controlled overnight. Tolerating diet. Reports dizziness. VSS. UO 2175 mL. Hgb 10.9. - Plan Plan (Free Text/Narrative):: Dressing changed this AM. Continue PT. Continue pain management. D/C Scop patch. Probable DC home this afternoon after PT.
[2017-08-10] MEDS: oxyCODONE ER 10 MG TAB.ER PO SCH (09:02)
[2017-08-10] MEDS: Docusate Sodium 100 MG Cap PO SCH (09:03)
[2017-08-10] MEDS: Tamsulosin 0.4 MG Cap.ER PO SCH (09:03)
[2017-08-10] MEDS: Celecoxib 100 MG Cap PO SCH (09:03)
[2017-08-10] MEDS: Aspirin 325 MG Tab PO SCH (09:03)
[2017-08-10] MEDS: Allopurinol 300 MG Tab PO SCH (09:03)
[2017-08-10] MEDS: Aluminum Hydroxide/Magnesium Hydroxide/Simethicone Susp 30 ML Cup PO PRN (09:05)
--- NOTE | 2017-08-10 13:50 | PCM.SN ---
- Free Text/Narrative Note: Discharge summary. Dressing change prior to discharge. See discharge plan for complete list of discharge medications and instructions. Dictation#: [id number]
[2017-08-10 14:38] VITALS: BP 127/75
--- NOTE | 2017-08-11 09:36 | DISCH ---
DATE OF DISCHARGE: 08/10/2017 PRIMARY CARE PHYSICIAN: Wing Correia M.D. ADMITTING DIAGNOSIS: Degenerative joint disease, right knee, tricompartmental. OTHER MEDICAL DIAGNOSES: 1. Hypertension. 2. Hypercholesterolemia. 3. Obstructive sleep apnea. 4. Benign prostatic hyperplasia. DISCHARGE DIAGNOSES: 1. Status post right total knee arthroplasty. 2. Hypertension. 3. Hypercholesterolemia. 4. Obstructive sleep apnea. 5. Benign prostatic hyperplasia. BRIEF HISTORY: Lew is a 77-year-old male, who has had complaint of progressive right knee pain. He was found to have tricompartmental degenerative changes. He has undergone left total knee arthroplasty in the past and has done well with this. Due to the lack of response to conservative treatment, surgical intervention was recommended at that time. OPERATION: Right total knee arthroplasty. HOSPITAL COURSE: Pain was controlled via a combination of IV and p.o. pain medications. The patient did receive 2 doses of Ancef postoperatively for 24 hours of antibiotic coverage. He was followed by Physical Therapy during his hospital stay. Upon discharge, his vital signs were stable, and he was afebrile. Hemoglobin on the day of discharge was 10.9. Aspirin 325 mg p.o. b.i.d. was started on postop day #1 for DVT prophylaxis. Pain is currently controlled with oral pain medications only. He is tolerating oral intake and ambulating with wheeled walker. He feels comfortable with discharge to home today. DISCHARGE MEDICATIONS: 1. OxyContin 10 mg. 2. Tylenol 500 mg. 3. Aspirin 325 mg. 4. Celebrex 200 mg. 5. Colace 100 mg. 6. Oxycodone 5 mg. DISCHARGE INSTRUCTIONS: 1. The patient will follow up in the clinic on August 18, 2017. This appointment was made for the patient. 2. Outpatient physical therapy 2 to 3 times per week for 4 to 6 weeks. 3. [facility] to the right knee. 4. CHYNA hose to the right lower extremity, on in the morning, off in the evening. For a complete medication reconciliation and discharge instructions, please refer to the patient's EHR. If the patient has questions or concerns prior to followup, they may call the clinic. BRENDA / GENNA /[id number] JUAN
== END 2017-08-10 14:39 | disposition home or self-care (01) | DRG 470 ==
LOC: MW.MS 10:22
PROVIDERS: ADMIT Orthopaedic Surgery; ATTEND Orthopaedic Surgery
PROC: 0SRC0J9 Replacement of Right Knee Joint with Synthetic Substitute, Cemented, Open Approach (ICD-10-PCS; principal; 2017-08-08)
DX: M17.11 Unilateral primary osteoarthritis, right knee (principal); M94.261 Chondromalacia, right knee; M25.761 Osteophyte, right knee; J44.9 Chronic obstructive pulmonary disease, unspecified; I10 Essential (primary) hypertension; E78.00 Pure hypercholesterolemia, unspecified; G47.30 Sleep apnea, unspecified; F17.200 Nicotine dependence, unspecified, uncomplicated; Z79.899 Other long term (current) drug therapy
CPT/HCPCS: 01400; 36415; 73560-26-RT; 73560-RT; 85014; 85018; 86850; 86900; 86901; 88304; 88311; 97110-GP; 97161-GP; A9270-GY; C1713; C1776; J0171; J0461; J0690; J0735; J1885; J2250; J2270; J2405; J2704; J2795; J3010; J7040; J7050; J7120

== ENCOUNTER 2018-08-01 11:52 | Day surgery (SDC) | payer MEDICARE, OTHER ==
[~2018-08-01 11:52] MED LIST changes: -Acetaminophen 500 MG Tab PO SCH; -Famotidine 20 MG/2 ML SDV IVPUSH SCH; -Ketorolac 30 MG/ML SDV IVPUSH SCH; +Lactated Ringers 1,000 ML IV SCH; +Lidocaine 2% 5 ML SDV ONE; +Propofol 200 MG/20 ML SDV ONE; -Ropivacaine 49.25 ML, Ketorolac 30 MG, EPINEPHrine 0.5 MG, cloNIDine 80 MCG in Sodium C... INJECT ONE; -Scopolamine 1.5 MG Transdermal Patch TRDERM SCH; +Sodium Chloride 0.9% 10 ML Syringe FLUSH PRN; +Sodium Chloride 0.9% 2.5 ML Syringe FLUSH PRN; -ceFAZolin 2 GM in Premix Bag 1 BAG IV SCH; +fentaNYL 100 MCG/2 ML SDV ONE; -oxyCODONE ER 20 MG TAB.ER PO SCH
--- NOTE | 2018-08-01 12:27 | PCM.PREANE ---
Preanesthetic Assessment - Procedure Proposed Procedure: Colonoscopy - Anesthesia/Transfusion/Family Hx Anesthesia History: Prior Anesthesia Without Reaction Family History of Anesthesia Reaction: No Transfusion History: No Prior Transfusion(s) Intubation History: Unknown - Review of Systems General: No Symptoms Pulmonary: Other (sleep apnea) Cardiovascular: Other (HTN) Gastrointestinal: Other (polyps in past; followup colonoscopy) Neurological: No Symptoms, Gait Disturbance (arthritis; TKR) Other: Reports: None - Physical Assessment NPO Status Date: 07/31/18 NPO Status Time: 22:00 Height: 5 ft 9 in Weight: 203 lb ASA Class: 3 Mental Status: Alert & Oriented x3 Airway Class: Mallampati = 3 Dentition: Reports: Normal Dentition, [place](s), Broken Tooth/Teeth Thyro-Mental Finger Breadths: 3 Mouth Opening Finger Breadths: 2 ROM/Head Extension: Limited/Partial Lungs: Clear to Auscultation, Normal Respiratory Effort Cardiovascular: Regular Rate, Regular Rhythm, No Murmurs - Allergies Allergies/Adverse Reactions: Allergies Allergy/AdvReac Type Severity Reaction Status Date / Time hydrocodone Allergy Nausea Verified 07/26/18 09:09 - Blood Blood Available: No Product(s) Available: None - Anesthesia Plan Pre-Op Medication Ordered: None - Acknowledgements Anesthesia Type Planned: MAC Pt an Appropriate Candidate for the Planned Anesthesia: Yes Alternatives and Risks of Anesthesia Discussed w Pt/Guardian: Yes Pt/Guardian Understands and Agrees with Anesthesia Plan: Yes PreAnesthesia Questionnaire HEENT History: Reports: Cataract Other HEENT History: frandy hearing aids Cardiovascular History: Reports: High Cholesterol, Hypertension Respiratory History: Reports: Sleep Apnea Other Respiratory History: uses CPAP Gastrointestinal History: Reports: Colon Polyp Genitourinary History: Reports: BPH Musculoskeletal History: Reports: Arthritis, Gout Neurological History: Reports: None Psychiatric History: Reports: None Endocrine/Metabolic History: Reports: None Hematologic History: Reports: None Immunologic History: Reports: None Oncologic (Cancer) History: Reports: None Dermatologic History: Reports: None - Past Surgical History Head Surgeries/Procedures: Reports: None HEENT Surgical History: Reports: Cataract Surgery, Naso-Sinus Surgery, Tonsillectomy Other HEENT Surgeries/Procedures: nasal surgery for fx Cardiovascular Surgical History: Reports: None Respiratory Surgical History: Reports: None GI Surgical History: Reports: Colonoscopy Male Surgical History: Reports: None Endocrine Surgical History: Reports: None Neurological Surgical History: Reports: None Musculoskeletal Surgical History: Reports: Carpal Tunnel, Knee Replacement Other Musculoskeletal Surgeries/Procedures:: bilateral carpal tunnel release, frandy TKA, replacement of left great toe joint, hammer toe left foot, second toe Oncologic Surgical History: Reports: None Dermatological Surgical History: Reports: None - SUBSTANCE USE Smoking Status *Q: Never Smoker - HOME MEDS Home Medications: Home Meds Allopurinol [Zyloprim] 300 mg PO DAILY 04/22/16 [History] Pravastatin Sodium [Pravachol] 40 mg PO BEDTIME 04/22/16 [History] Ramipril [Altace] 10 mg PO DAILY 04/22/16 [History] Verapamil HCl [Calan Sr] 240 mg PO BEDTIME 04/22/16 [History] Zolpidem Tartrate 10 mg PO BEDTIME PRN 04/22/16 [History] Aspirin 81 mg PO DAILY 07/26/18 [History] Indomethacin [Indocin] 50 mg PO ASDIRECTED PRN 07/26/18 [History] Meloxicam 7.5 mg PO DAILY 07/26/18 [History] Metoprolol Succinate 50 mg PO BEDTIME 07/26/18 [History] - CURRENT (IN HOUSE) MEDS Current Meds: Current Medications Lactated Ringer's (Ringers, Lactated) 1,000 mls @ 125 mls/hr IV ASDIRECTED MORGAN Sodium Chloride (Saline Flush) 10 ml FLUSH ASDIRECTED PRN PRN Reason: Keep Vein Open Sodium Chloride (Saline Flush) 2.5 ml FLUSH ASDIRECTED PRN PRN Reason: Keep Vein Open Sodium Chloride (Saline Flush) 10 ml FLUSH ASDIRECTED PRN PRN Reason: Keep Vein Open Sodium Chloride (Saline Flush) 2.5 ml FLUSH ASDIRECTED PRN PRN Reason: Keep Vein Open Discontinued Medications Fentanyl (Sublimaze) Confirm Administered Dose 100 mcg .ROUTE .STK-MED ONE Stop: 08/01/18 11:45 Lidocaine (Xylocaine-Mpf 2%) Confirm Administered Dose 5 ml .ROUTE .STK-MED ONE Stop: 08/01/18 11:45 Propofol (Diprivan 20 Ml) Confirm Administered Dose 400 mg .ROUTE .STK-MED ONE Stop: 08/01/18 11:45
[2018-08-01] MEDS ORDERED: ceFAZolin/Dextrose,Iso-Osmotic 2 GM/50 ML Duplex Bag IV ONE (13:26)
--- NOTE | 2018-08-01 14:10 | PCM.OPNOTE ---
- General Post-Op/Procedure Note Date of Surgery/Procedure: 08/01/18 Operative Procedure(s): Colonoscopy Findings: Sigmoid colon polyp Pre Op Diagnosis: History of colon polyps Post-Op Diagnosis: Sigmoid colon polyp Anesthesia Technique: MAC Primary Surgeon: Aisha Turner Condition: Good Free Text/Narrative:: Intake & Output 07/31/18 08/01/18 08/01/18 22:59 06:59 14:59 Intake Total 450 Balance 450
--- NOTE | 2018-08-01 14:13 | PCM.POSTAN ---
POST ANESTHESIA ASSESSMENT - MENTAL STATUS Mental Status: Alert, Oriented - RESPIRATORY Respiratory Status: Respiratory Rate WNL, Airway Patent, O2 Saturation Stable - CARDIOVASCULAR CV Status: Pulse Rate WNL, Blood Pressure Stable - GASTROINTESTINAL GI Status: No Symptoms - PAIN Pain Score: 0 - POST OP HYDRATION Hydration Status: Adequate & Stable
--- NOTE | 2018-08-01 14:17 | PCM.POSTAN ---
POST ANESTHESIA ASSESSMENT - MENTAL STATUS Mental Status: Alert, Oriented - RESPIRATORY Respiratory Status: Respiratory Rate WNL, Airway Patent, O2 Saturation Stable - CARDIOVASCULAR CV Status: Pulse Rate WNL, Blood Pressure Stable - GASTROINTESTINAL GI Status: No Symptoms - POST OP HYDRATION Hydration Status: Adequate & Stable
[2018-08-01 14:33] VITALS: BP 167/91
--- NOTE | 2018-08-01 14:54 | OR ---
SURGEON: ZACHARY PAGE MD DATE OF PROCEDURE: 08/01/2018 PREOPERATIVE DIAGNOSIS: History of colon polyps. POSTOPERATIVE DIAGNOSES: 1. Sigmoid colon polyp. 2. Diverticulosis. PROCEDURE PERFORMED: Colonoscopy. ANESTHESIA: MAC. INSTRUMENT USED: Olympus colonoscope. EXTENT OF EXAM: To the cecum. PREPARATION: Good. LIMITATIONS: None. INDICATION FOR EXAMINATION: The patient is a 78-year-old male, who had a colonoscopy performed 5 years ago that showed colon polyps. Because of this, he is due for a repeat colonoscopy. We discussed the procedure, expected perioperative course, and risks including bleeding, infection, or damage to surrounding structures including perforation. The patient verbalized understanding and wishes to proceed. PROCEDURE IN DETAIL: The patient was brought to the endoscopy suite and placed in the left lateral decubitus position. A time-out was completed verifying the patient's name, age, date of , allergies, and procedure to be performed. Monitored anesthesia care was induced and continuous oxygen was provided via nasal cannula throughout the procedure. After adequate sedation was achieved, a digital rectal exam was performed. This exam was within normal limits. A well lubricated colonoscope was inserted to the rectum and advanced under direct visualization to the level of the cecum. The cecum was identified by both visual and anatomic landmarks. A photograph was taken of the cecal cap as well as with the scope in the retroflexed position within the cecum. The scope was then straightened out and fully withdrawn while examining the color, texture, anatomy, and integrity of the mucosa from the cecum to the anal canal. The patient was found to have multiple diverticula within the sigmoid colon. In the distal sigmoid colon, a 2 to 3 mm sessile polyp was noted. This was removed using a cold biopsy forceps. The scope was then brought into the rectum and retroflexed to allow visualization of the anal canal opening. This appeared normal and a photograph was taken. The scope was then straightened out and fully withdrawn. The cecum to anus time was 8 minutes. The patient tolerated the procedure well and was taken to PACU in stable condition. ENDOSCOPIC DIAGNOSES: 1. Sigmoid colon polyp. 2. Diverticulosis. RECOMMENDATIONS: Follow up in clinic in 2 weeks. ANSON VAIL /[id number]
== END 2018-08-01 14:35 | disposition home or self-care (01) ==
LOC: MW.SDS 11:52
PROVIDERS: ATTEND Surgery
DX: Z12.11 Encounter for screening for malignant neoplasm of colon (principal); K63.5 Polyp of colon; K57.30 Diverticulosis of large intestine without perforation or abscess without bleeding; E78.00 Pure hypercholesterolemia, unspecified; N40.1 Benign prostatic hyperplasia with lower urinary tract symptoms; N13.8 Other obstructive and reflux uropathy; M10.9 Gout, unspecified; M17.11 Unilateral primary osteoarthritis, right knee; I10 Essential (primary) hypertension; D75.1 Secondary polycythemia; G47.33 Obstructive sleep apnea (adult) (pediatric); Z99.89 Dependence on other enabling machines and devices; F17.200 Nicotine dependence, unspecified, uncomplicated; Z79.82 Long term (current) use of aspirin; Z79.899 Other long term (current) drug therapy; Z88.5 Allergy status to narcotic agent; Z88.6 Allergy status to analgesic agent; Z86.010 Personal history of colon polyps
CPT/HCPCS: 45380; J0690; J2704; J3010; J7120

== ENCOUNTER 2024-08-26 18:25 | Inpatient (IN) | payer MEDICARE, OTHER ==
[2024-08-26] MEDS ORDERED: Sodium Chloride 0.9% 2.5 ML Syringe FLUSH PRN (18:32)
[2024-08-26 18:39] LABS: BASOPHILS ABSOLUTE AUTO 0.04 K/uL (0.00-0.20); BASOPHILS PERCENT AUTO 0.4 % (0.0-1.0); EOSINOPHILS ABSOLUTE AUTO 0.07 K/uL (0.00-0.45); EOSINOPHILS PERCENT AUTO 0.6 % (0.0-6.0); HEMATOCRIT 41.1 % (42.0-52.0); HEMOGLOBIN 13.7 g/dL (14.0-18.0); IMMATURE GRAN ABSOLUTE AUTO 0.04 K/uL (0.00-0.05); IMMATURE GRAN PERCENT AUTO 0.4 % (0.0-0.4); LYMPHOCYTES ABSOLUTE AUTO 1.08 K/uL (1.00-4.80); LYMPHOCYTES PERCENT AUTO 9.5 % (24.0-44.0); MEAN CORPUSCULAR HEMOGLOBIN 31.9 pg (28.0-32.0); MEAN CORPUSCULAR HGB CONC 33.3 g/dL (32.0-36.0); MEAN CORPUSCULAR VOLUME 95.6 fL (83.0-99.0); MEAN PLATELET VOLUME 9.2 fL (9.4-12.4); MONOCYTES ABSOLUTE AUTO 0.95 K/uL (0.00-0.80); MONOCYTES PERCENT AUTO 8.4 % (0.0-8.0); NEUTROPHILS ABSOLUTE AUTO 9.15 K/uL (1.80-7.70); NEUTROPHILS PERCENT AUTO 80.7 % (41.0-71.0); PLATELET COUNT,PLT 145 K/uL (150-400); WHITE BLOOD CELL COUNT,WBC 11.33 K/uL (3.9-11.3)
[2024-08-26] MEDS: Sodium Chloride 0.9% 1,000 ML IV STA ×2 (18:53→19:36)
[2024-08-26] MEDS: Ondansetron 4 MG/2 ML SDV IVPUSH STA (18:53)
[2024-08-26 19:08] LABS: A/G RATIO 1.2 (0.9-1.6); ALANINE AMINOTRANSFERASE,ALT 13 IU/L (14-63); ALBUMIN 3.7 g/dL (3.4-5.0); ALKALINE PHOSPHATASE 50 U/L (46-116); ASPARTATE AMNIOTRANSFERASE,AST 17 IU/L (15-37); BILIRUBIN TOTAL 1.5 mg/dL (0.2-1.0); BLOOD UREA NITROGEN,BUN 20 mg/dL (7.0-18.0); CALCIUM 8.9 mg/dL (8.5-10.1); CARBON DIOXIDE,CO2 22.6 mmol/L (21.0-32.0); CHLORIDE,CL 102 mmol/L (98-107); CREATININE 1.3 mg/dL (0.8-1.3); ESTIMATED GFR 55 mL/min (>60); GLUCOSE RANDOM 167 mg/dL (74-106); LIPASE 21 U/L (16-77); POTASSIUM,K 4.1 mmol/L (3.5-5.1); PROTEIN TOTAL,TP 6.8 g/dL (6.4-8.2); SODIUM,NA 137 mmol/L (136-148)
[2024-08-26 19:32] LABS: BILIRUBIN,URINE NEGATIVE (NEGATIVE); COLOR,URINE YELLOW; GLUCOSE,URINE NEGATIVE (NEGATIVE); KETONES,URINE >=80 mg/dL (NEGATIVE); LEUKOCYTE ESTERASE,URINE NEGATIVE (NEGATIVE); NITRITE,URINE NEGATIVE (NEGATIVE); OCCULT BLOOD,URINE TRACE-INTACT (NEGATIVE); PROTEIN,URINE NEGATIVE (NEGATIVE); UROBILINOGEN,URINE 0.2 EU/dL (<2.0)
[2024-08-26 19:33] LABS: APPEARANCE,URINE HAZY
[2024-08-26] MEDS: Sodium Chloride 0.9% 10 ML Syringe FLUSH PRN (19:36)
[2024-08-26 19:43] LABS: BACTERIA,URINE FEW (NEGATIVE); EPITHELIAL CELLS,URINE RARE (NONE-FEW); RBC,URINE 0-1 (0-2/HPF); WBC,URINE 0-4 (0-5/HPF)
[2024-08-26] MEDS: Iopamidol 755 MG/ML 500 ML Multipack Bottle IVPUSH ONE (19:52)
[2024-08-26] MEDS ORDERED: Polyethylene Glycol 3350 Powder 17 GM Packet PO PRN (20:57)
[2024-08-26] MEDS ORDERED: Morphine 2 MG/ML SYRINGE IVPUSH PRN (20:57)
[2024-08-26] MEDS ORDERED: Acetaminophen 650 MG Supp RECTAL PRN (20:57)
[2024-08-26] MEDS ORDERED: Naloxone 0.4 MG/ML SDV IVPUSH PRN (20:57)
[2024-08-26] MEDS ORDERED: Metoclopramide 10 MG/2 ML SDV IV PRN (20:57)
[2024-08-26] MEDS: Sodium Chloride 0.9% 1,000 ML IV SCH (22:21)
[2024-08-26] MEDS: Melatonin 3 MG Tab PO PRN (22:39)
[2024-08-27 05:34] LABS: BASOPHILS ABSOLUTE AUTO 0.03 K/uL (0.00-0.20); BASOPHILS PERCENT AUTO 0.4 % (0.0-1.0); EOSINOPHILS ABSOLUTE AUTO 0.04 K/uL (0.00-0.45); EOSINOPHILS PERCENT AUTO 0.5 % (0.0-6.0); HEMATOCRIT 37.3 % (42.0-52.0); HEMOGLOBIN 12.3 g/dL (14.0-18.0); IMMATURE GRAN ABSOLUTE AUTO 0.03 K/uL (0.00-0.05); IMMATURE GRAN PERCENT AUTO 0.4 % (0.0-0.4); LYMPHOCYTES ABSOLUTE AUTO 0.72 K/uL (1.00-4.80); LYMPHOCYTES PERCENT AUTO 8.6 % (24.0-44.0); MEAN CORPUSCULAR HEMOGLOBIN 31.8 pg (28.0-32.0); MEAN CORPUSCULAR VOLUME 96.4 fL (83.0-99.0); MONOCYTES ABSOLUTE AUTO 0.78 K/uL (0.00-0.80); MONOCYTES PERCENT AUTO 9.4 % (0.0-8.0); NEUTROPHILS ABSOLUTE AUTO 6.73 K/uL (1.80-7.70); NEUTROPHILS PERCENT AUTO 80.7 % (41.0-71.0); PLATELET COUNT,PLT 148 K/uL (150-400); RED BLOOD CELL COUNT 3.87 M/uL (4.52-5.90); WHITE BLOOD CELL COUNT,WBC 8.33 K/uL (3.9-11.3)
[2024-08-27 05:59] LABS: CALCIUM 8.4 mg/dL (8.5-10.1); CARBON DIOXIDE,CO2 26.1 mmol/L (21.0-32.0); CREATININE 1.1 mg/dL (0.8-1.3); EST CRCL DRUG DOSING (CG) 49.23 mL/min; MAGNESIUM 1.9 mg/dL (1.8-2.4); POTASSIUM,K 4.3 mmol/L (3.5-5.1)
[2024-08-27] MEDS: Acetaminophen 325 MG Tab PO PRN (06:34)
[2024-08-27] MEDS: Ondansetron 4 MG/2 ML SDV IVPUSH PRN (06:34)
[2024-08-27] MEDS: Pantoprazole 40 MG Tab.CR PO SCH (06:34)
[2024-08-27] MEDS: Aspirin 81 MG Tab.Chew PO SCH (08:01)
[2024-08-27] MEDS: Allopurinol 300 MG Tab PO SCH (08:01)
[2024-08-27] MEDS ORDERED: Metoclopramide 10 MG/2 ML SDV IV PRN (08:04)
[2024-08-27 10:51] LABS: ALBUMIN 2.9 g/dL (3.4-5.0); BILIRUBIN TOTAL 1.2 mg/dL (0.2-1.0); CALCIUM 8.1 mg/dL (8.5-10.1); CARBON DIOXIDE,CO2 27.3 mmol/L (21.0-32.0); CREATININE 1.4 mg/dL (0.8-1.3); EST CRCL DRUG DOSING (CG) 38.68 mL/min; POTASSIUM,K 4.2 mmol/L (3.5-5.1); PROTEIN TOTAL,TP 5.9 g/dL (6.4-8.2)
[2024-08-27 12:05] LABS: HEMOGLOBIN A1C 5.5 %
[2024-08-27] MEDS: Pantoprazole 40 MG in Sodium Chloride 0.9% 10 ML IVPUSH ONE (18:51)
[2024-08-27] MEDS: Metoprolol Succinate 50 MG Tab.ER PO SCH (20:57)
[2024-08-27] MEDS: Pravastatin 40 MG Tab PO SCH (20:57)
[2024-08-28 07:30] LABS: BASOPHILS ABSOLUTE AUTO 0.02 K/uL (0.00-0.20); BASOPHILS PERCENT AUTO 0.2 % (0.0-1.0); EOSINOPHILS ABSOLUTE AUTO 0.13 K/uL (0.00-0.45); EOSINOPHILS PERCENT AUTO 1.6 % (0.0-6.0); HEMATOCRIT 35.6 % (42.0-52.0); HEMOGLOBIN 11.9 g/dL (14.0-18.0); IMMATURE GRAN ABSOLUTE AUTO 0.03 K/uL (0.00-0.05); IMMATURE GRAN PERCENT AUTO 0.4 % (0.0-0.4); LYMPHOCYTES ABSOLUTE AUTO 1.23 K/uL (1.00-4.80); LYMPHOCYTES PERCENT AUTO 15.3 % (24.0-44.0); MEAN CORPUSCULAR HEMOGLOBIN 32.4 pg (28.0-32.0); MEAN CORPUSCULAR HGB CONC 33.4 g/dL (32.0-36.0); MEAN PLATELET VOLUME 9.6 fL (9.4-12.4); MONOCYTES ABSOLUTE AUTO 1.02 K/uL (0.00-0.80); MONOCYTES PERCENT AUTO 12.7 % (0.0-8.0); NEUTROPHILS ABSOLUTE AUTO 5.59 K/uL (1.80-7.70); NEUTROPHILS PERCENT AUTO 69.8 % (41.0-71.0); PLATELET COUNT,PLT 140 K/uL (150-400); RED BLOOD CELL COUNT 3.67 M/uL (4.52-5.90); WHITE BLOOD CELL COUNT,WBC 8.02 K/uL (3.9-11.3)
[2024-08-28 07:58] LABS: A/G RATIO 0.9 (0.9-1.6); ALBUMIN 2.9 g/dL (3.4-5.0); BILIRUBIN TOTAL 0.9 mg/dL (0.2-1.0); CALCIUM 8.6 mg/dL (8.5-10.1); CARBON DIOXIDE,CO2 25.4 mmol/L (21.0-32.0); CREATININE 1.1 mg/dL (0.8-1.3); EST CRCL DRUG DOSING (CG) 49.23 mL/min; POTASSIUM,K 4.1 mmol/L (3.5-5.1); PROTEIN TOTAL,TP 6.1 g/dL (6.4-8.2)
[2024-08-28] MEDS: Lidocaine 4% 1 each Patch TOP PRN (09:37)
[2024-08-28 14:37] VITALS: BP 127/70; PULSE 61
== END 2024-08-28 13:05 | disposition home or self-care (01) | DRG 641 ==
LOC: MW.ED 18:25 → MW.MS 20:59 → OBSVTOIN 08-27 13:35 → MW.MS 08-27 22:24
PROVIDERS: ADMIT Family Medicine; ATTEND Family Medicine
DX: E86.0 Dehydration (principal); R11.2 Nausea with vomiting, unspecified; I10 Essential (primary) hypertension; E78.5 Hyperlipidemia, unspecified; M10.9 Gout, unspecified; D72.829 Elevated white blood cell count, unspecified; Z79.82 Long term (current) use of aspirin; E78.00 Pure hypercholesterolemia, unspecified; Z88.5 Allergy status to narcotic agent; Z75.8 Other problems related to medical facilities and other health care; G47.30 Sleep apnea, unspecified; N40.0 Benign prostatic hyperplasia without lower urinary tract symptoms; R10.33 Periumbilical pain; R26.2 Difficulty in walking, not elsewhere classified; N28.1 Cyst of kidney, acquired; K42.9 Umbilical hernia without obstruction or gangrene; M54.9 Dorsalgia, unspecified; J44.9 Chronic obstructive pulmonary disease, unspecified; Z88.8 Allergy status to other drugs, medicaments and biological substances; Z79.899 Other long term (current) drug therapy; Z86.0100 Personal history of colon polyps, unspecified; Z97.4 Presence of external hearing-aid; Z98.49 Cataract extraction status, unspecified eye; Z98.890 Other specified postprocedural states; Z90.89 Acquired absence of other organs
CPT/HCPCS: 36415 ×2; 74177; 80048; 80053 ×2; 81001; 82947 ×2; 83036; 83690; 83735; 84484; 85025 ×2; 93005; 96361 ×3; 96374; 96376; 99285; A9270 ×6; G0378 ×3; J2405 ×3; J3490; J7030 ×4; Q9967; 93010; 97163-GP; 97530-GP

== ENCOUNTER 2025-07-25 20:19 | Inpatient (IN) | payer MEDICARE, OTHER ==
[2025-07-25] MEDS ORDERED: Sodium Chloride 0.9% 2.5 ML Syringe FLUSH PRN (20:48)
[2025-07-25] MEDS ORDERED: Sodium Chloride 0.9% 10 ML Syringe FLUSH PRN (20:48)
[2025-07-25 21:22] LABS: BASOPHILS ABSOLUTE AUTO 0.03 K/uL (0.00-0.20); BASOPHILS PERCENT AUTO 0.3 % (0.0-1.0); EOSINOPHILS ABSOLUTE AUTO 0.01 K/uL (0.00-0.45); EOSINOPHILS PERCENT AUTO 0.1 % (0.0-6.0); IMMATURE GRAN ABSOLUTE AUTO 0.03 K/uL (0.00-0.05); IMMATURE GRAN PERCENT AUTO 0.3 % (0.0-0.4); LYMPHOCYTES ABSOLUTE AUTO 0.41 K/uL (1.00-4.80); LYMPHOCYTES PERCENT AUTO 4.2 % (24.0-44.0); MEAN PLATELET VOLUME 8.8 fL (9.4-12.4); MONOCYTES ABSOLUTE AUTO 0.60 K/uL (0.00-0.80); MONOCYTES PERCENT AUTO 6.2 % (0.0-8.0); NEUTROPHILS ABSOLUTE AUTO 8.58 K/uL (1.80-7.70); NEUTROPHILS PERCENT AUTO 88.9 % (41.0-71.0); NRBC ABSOLUTE 0.00 K/uL (0.00-0.02); NRBC PERCENT 0.0 /100WBC (0.0-0.2); PLATELET COUNT,PLT 149 K/uL (150-400); RED BLOOD CELL COUNT 4.25 M/uL (4.52-5.90); WHITE BLOOD CELL COUNT,WBC 9.66 K/uL (3.9-11.3)
[2025-07-25 22:18] LABS: A/G RATIO 1.2 (0.9-1.6); ALANINE AMINOTRANSFERASE,ALT 18.0 IU/L (14-63); ASPARTATE AMNIOTRANSFERASE,AST 16.0 IU/L (15-37); BILIRUBIN TOTAL 1.1 mg/dL (0.2-1.0); BLOOD UREA NITROGEN,BUN 17.0 mg/dL (7.0-18.0); CARBON DIOXIDE,CO2 27.7 mmol/L (21.0-32.0); CHLORIDE,CL 102.0 mmol/L (98-107); CREATININE 1.2 mg/dL (0.8-1.3); EST CRCL DRUG DOSING (CG) 44.33 mL/min; GLUCOSE RANDOM 156.0 mg/dL (74-106); POTASSIUM,K 3.9 mmol/L (3.5-5.1); PRO B-TYPE NATRIUR PEPT,BNPPRO 493.0 pg/mL (0-450); PROTEIN TOTAL,TP 6.9 g/dL (6.4-8.2); SODIUM,NA 140.0 mmol/L (136-148)
[2025-07-25 22:22] LABS: ESTIMATED GFR 60.0 mL/min (>60)
[2025-07-25] MEDS: Iopamidol 755 MG/ML 500 ML Multipack Bottle IVPUSH STA (23:03)
[2025-07-26] MEDS ORDERED: Magnesium Sulfate 2 GM/50 mL 2 GM in Premix Bag 1 BAG IV SCH (00:30)
[2025-07-26] MEDS: Magnesium Sulfate 2 GM/50 mL 2 GM in Premix Bag 1 BAG IV ONE (00:33)
[2025-07-26 00:35] LABS: GLUCOSE,URINE NEGATIVE (NEGATIVE); OCCULT BLOOD,URINE TRACE-INTACT (NEGATIVE)
[2025-07-26 00:51] LABS: APPEARANCE,URINE SLT CLOUDY; EPITHELIAL CELLS,URINE OCCASIONAL (NONE-FEW)
[2025-07-26] MEDS ORDERED: Sodium Chloride 0.9% 10 ML Syringe FLUSH PRN (08:17)
[2025-07-26] MEDS ORDERED: Sodium Chloride 0.9% 2.5 ML Syringe FLUSH PRN (08:17)
[2025-07-26 11:49] LABS: CREATINE KINASE,CK 40.0 U/L (26-308); PHOSPHORUS 2.9 mg/dL (2.6-4.7)
[2025-07-26] MEDS: Ondansetron 4 MG Tab.DIS PO PRN (12:26)
[2025-07-26 14:28] LABS: A/G RATIO 0.9 (0.9-1.6); ALANINE AMINOTRANSFERASE,ALT 22.0 IU/L (14-63); ASPARTATE AMNIOTRANSFERASE,AST 19.0 IU/L (15-37); BILIRUBIN TOTAL 1.1 mg/dL (0.2-1.0); BLOOD UREA NITROGEN,BUN 13.0 mg/dL (7.0-18.0); CARBON DIOXIDE,CO2 29.1 mmol/L (21.0-32.0); CHLORIDE,CL 100.0 mmol/L (98-107); CREATININE 1.2 mg/dL (0.8-1.3); EST CRCL DRUG DOSING (CG) 44.33 mL/min; GLUCOSE RANDOM 136.0 mg/dL (74-106); POTASSIUM,K 3.9 mmol/L (3.5-5.1); PROTEIN TOTAL,TP 6.2 g/dL (6.4-8.2); SODIUM,NA 136.0 mmol/L (136-148)
[2025-07-26 14:34] LABS: ESTIMATED GFR 60.0 mL/min (>60)
[2025-07-26] MEDS: Ondansetron 4 MG/2 ML SDV IVPUSH PRN (19:51)
[2025-07-27 06:00] LABS: BASOPHILS ABSOLUTE AUTO 0.01 K/uL (0.00-0.20); BASOPHILS PERCENT AUTO 0.1 % (0.0-1.0); EOSINOPHILS ABSOLUTE AUTO 0.05 K/uL (0.00-0.45); EOSINOPHILS PERCENT AUTO 0.5 % (0.0-6.0); IMMATURE GRAN ABSOLUTE AUTO 0.03 K/uL (0.00-0.05); IMMATURE GRAN PERCENT AUTO 0.3 % (0.0-0.4); LYMPHOCYTES ABSOLUTE AUTO 0.85 K/uL (1.00-4.80); LYMPHOCYTES PERCENT AUTO 8.2 % (24.0-44.0); MEAN PLATELET VOLUME 8.9 fL (9.4-12.4); MONOCYTES ABSOLUTE AUTO 0.95 K/uL (0.00-0.80); MONOCYTES PERCENT AUTO 9.2 % (0.0-8.0); NEUTROPHILS ABSOLUTE AUTO 8.45 K/uL (1.80-7.70); NEUTROPHILS PERCENT AUTO 81.7 % (41.0-71.0); NRBC ABSOLUTE 0.00 K/uL (0.00-0.02); NRBC PERCENT 0.0 /100WBC (0.0-0.2); PLATELET COUNT,PLT 134 K/uL (150-400); RED BLOOD CELL COUNT 3.77 M/uL (4.52-5.90); WHITE BLOOD CELL COUNT,WBC 10.34 K/uL (3.9-11.3)
[2025-07-27 06:33] LABS: ALANINE AMINOTRANSFERASE,ALT 15.0 IU/L (14-63); ASPARTATE AMNIOTRANSFERASE,AST 16.0 IU/L (15-37); BILIRUBIN TOTAL 1.2 mg/dL (0.2-1.0); BLOOD UREA NITROGEN,BUN 15.0 mg/dL (7.0-18.0); CARBON DIOXIDE,CO2 27.4 mmol/L (21.0-32.0); CHLORIDE,CL 103.0 mmol/L (98-107); CREATININE 1.0 mg/dL (0.8-1.3); EST CRCL DRUG DOSING (CG) 53.2 mL/min; GLUCOSE RANDOM 109.0 mg/dL (74-106); POTASSIUM,K 4.0 mmol/L (3.5-5.1); PROTEIN TOTAL,TP 6.1 g/dL (6.4-8.2); SODIUM,NA 139.0 mmol/L (136-148)
[2025-07-27 06:34] LABS: A/G RATIO 0.9 (0.9-1.6); ESTIMATED GFR 74.0 mL/min (>60)
[2025-07-27 10:01] LABS: APPEARANCE,URINE CLEAR; GLUCOSE,URINE NEGATIVE (NEGATIVE); OCCULT BLOOD,URINE SMALL (NEGATIVE)
[2025-07-27 10:18] LABS: EPITHELIAL CELLS,URINE RARE (NONE-FEW)
[2025-07-27] MEDS: Iopamidol 755 Mg/ML 100 ML Bottle IVPUSH ONE (17:28)
[2025-07-27 17:51] LABS: PHOSPHORUS 2.2 mg/dL (2.6-4.7); TSH ULTRASENSITIVE 0.72 uIU/mL (0.36-3.74)
[2025-07-27] MEDS: Lactated Ringers 500 ML IV SCH (18:02)
[2025-07-27 19:02] LABS: LACTIC ACID 0.8 mmol/L (0.4-2.0)
[2025-07-27] MEDS: Verapamil 240 MG Tab.ER PO SCH (20:37)
[2025-07-28 05:28] LABS: BASOPHILS ABSOLUTE AUTO 0.01 K/uL (0.00-0.20); BASOPHILS PERCENT AUTO 0.1 % (0.0-1.0); EOSINOPHILS ABSOLUTE AUTO 0.05 K/uL (0.00-0.45); EOSINOPHILS PERCENT AUTO 0.6 % (0.0-6.0); IMMATURE GRAN ABSOLUTE AUTO 0.03 K/uL (0.00-0.05); IMMATURE GRAN PERCENT AUTO 0.4 % (0.0-0.4); LYMPHOCYTES ABSOLUTE AUTO 0.79 K/uL (1.00-4.80); LYMPHOCYTES PERCENT AUTO 9.3 % (24.0-44.0); MEAN PLATELET VOLUME 9.2 fL (9.4-12.4); MONOCYTES ABSOLUTE AUTO 0.90 K/uL (0.00-0.80); MONOCYTES PERCENT AUTO 10.6 % (0.0-8.0); NEUTROPHILS ABSOLUTE AUTO 6.72 K/uL (1.80-7.70); NEUTROPHILS PERCENT AUTO 79.0 % (41.0-71.0); NRBC ABSOLUTE 0.00 K/uL (0.00-0.02); NRBC PERCENT 0.0 /100WBC (0.0-0.2); PLATELET COUNT,PLT 143 K/uL (150-400); RED BLOOD CELL COUNT 3.50 M/uL (4.52-5.90); WHITE BLOOD CELL COUNT,WBC 8.50 K/uL (3.9-11.3)
[2025-07-28 05:53] LABS: A/G RATIO 0.8 (0.9-1.6); ALANINE AMINOTRANSFERASE,ALT 22.0 IU/L (14-63); ASPARTATE AMNIOTRANSFERASE,AST 20.0 IU/L (15-37); BILIRUBIN TOTAL 1.4 mg/dL (0.2-1.0); BLOOD UREA NITROGEN,BUN 13.0 mg/dL (7.0-18.0); CARBON DIOXIDE,CO2 27.9 mmol/L (21.0-32.0); CHLORIDE,CL 104.0 mmol/L (98-107); CREATININE 1.1 mg/dL (0.8-1.3); EST CRCL DRUG DOSING (CG) 48.36 mL/min; GLUCOSE RANDOM 112.0 mg/dL (74-106); POTASSIUM,K 3.7 mmol/L (3.5-5.1); PROTEIN TOTAL,TP 5.9 g/dL (6.4-8.2); SODIUM,NA 141.0 mmol/L (136-148)
[2025-07-28 05:55] LABS: ESTIMATED GFR 66.0 mL/min (>60)
[2025-07-28] MEDS: cefTRIAXone 1 GM in Water For Injection, Sterile 10 ML IVPUSH SCH (16:30)
[2025-07-29 00:36] LABS: APPEARANCE,URINE HAZY; GLUCOSE,URINE NEGATIVE (NEGATIVE); OCCULT BLOOD,URINE TRACE-LYSED (NEGATIVE)
[2025-07-29 00:37] LABS: FINE GRANULAR CASTS,URINE RARE (NEGATIVE)
[2025-07-29 00:38] LABS: EPITHELIAL CELLS,URINE OCCASIONAL (NONE-FEW)
[2025-07-29 05:50] LABS: BASOPHILS ABSOLUTE AUTO 0.02 K/uL (0.00-0.20); BASOPHILS PERCENT AUTO 0.2 % (0.0-1.0); EOSINOPHILS ABSOLUTE AUTO 0.09 K/uL (0.00-0.45); EOSINOPHILS PERCENT AUTO 1.1 % (0.0-6.0); IMMATURE GRAN ABSOLUTE AUTO 0.04 K/uL (0.00-0.05); IMMATURE GRAN PERCENT AUTO 0.5 % (0.0-0.4); LYMPHOCYTES ABSOLUTE AUTO 0.83 K/uL (1.00-4.80); LYMPHOCYTES PERCENT AUTO 9.8 % (24.0-44.0); MEAN PLATELET VOLUME 9.4 fL (9.4-12.4); MONOCYTES ABSOLUTE AUTO 0.84 K/uL (0.00-0.80); MONOCYTES PERCENT AUTO 9.9 % (0.0-8.0); NEUTROPHILS ABSOLUTE AUTO 6.66 K/uL (1.80-7.70); NEUTROPHILS PERCENT AUTO 78.5 % (41.0-71.0); NRBC ABSOLUTE 0.00 K/uL (0.00-0.02); NRBC PERCENT 0.0 /100WBC (0.0-0.2); PLATELET COUNT,PLT 134 K/uL (150-400); RED BLOOD CELL COUNT 3.35 M/uL (4.52-5.90); WHITE BLOOD CELL COUNT,WBC 8.48 K/uL (3.9-11.3)
[2025-07-29 06:13] LABS: A/G RATIO 0.7 (0.9-1.6); ALANINE AMINOTRANSFERASE,ALT 37.0 IU/L (14-63); ASPARTATE AMNIOTRANSFERASE,AST 31.0 IU/L (15-37); BILIRUBIN TOTAL 1.2 mg/dL (0.2-1.0); BLOOD UREA NITROGEN,BUN 16.0 mg/dL (7.0-18.0); CARBON DIOXIDE,CO2 28.4 mmol/L (21.0-32.0); CHLORIDE,CL 102.0 mmol/L (98-107); CREATININE 1.3 mg/dL (0.8-1.3); EST CRCL DRUG DOSING (CG) 40.92 mL/min; GLUCOSE RANDOM 119.0 mg/dL (74-106); PHOSPHORUS 2.8 mg/dL (2.6-4.7); POTASSIUM,K 3.6 mmol/L (3.5-5.1); PROTEIN TOTAL,TP 6.1 g/dL (6.4-8.2); SODIUM,NA 139.0 mmol/L (136-148)
[2025-07-29 06:14] LABS: ESTIMATED GFR 54.0 mL/min (>60)
[2025-07-29] MEDS: VANCOmycin 1.75 GM/350 ML 1.75 GM in Premix Bag 1 BAG IV ONE (12:51)
[2025-07-30 05:59] LABS: BASOPHILS ABSOLUTE AUTO 0.02 K/uL (0.00-0.20); BASOPHILS PERCENT AUTO 0.3 % (0.0-1.0); EOSINOPHILS ABSOLUTE AUTO 0.13 K/uL (0.00-0.45); EOSINOPHILS PERCENT AUTO 1.6 % (0.0-6.0); IMMATURE GRAN ABSOLUTE AUTO 0.06 K/uL (0.00-0.05); IMMATURE GRAN PERCENT AUTO 0.8 % (0.0-0.4); LYMPHOCYTES ABSOLUTE AUTO 1.14 K/uL (1.00-4.80); LYMPHOCYTES PERCENT AUTO 14.3 % (24.0-44.0); MEAN PLATELET VOLUME 9.1 fL (9.4-12.4); MONOCYTES ABSOLUTE AUTO 0.68 K/uL (0.00-0.80); MONOCYTES PERCENT AUTO 8.5 % (0.0-8.0); NEUTROPHILS ABSOLUTE AUTO 5.97 K/uL (1.80-7.70); NEUTROPHILS PERCENT AUTO 74.5 % (41.0-71.0); NRBC ABSOLUTE 0.00 K/uL (0.00-0.02); NRBC PERCENT 0.0 /100WBC (0.0-0.2); PLATELET COUNT,PLT 174 K/uL (150-400); RED BLOOD CELL COUNT 3.65 M/uL (4.52-5.90); WHITE BLOOD CELL COUNT,WBC 8.00 K/uL (3.9-11.3)
[2025-07-30 06:33] LABS: A/G RATIO 0.7 (0.9-1.6); ALANINE AMINOTRANSFERASE,ALT 50.0 IU/L (14-63); ASPARTATE AMNIOTRANSFERASE,AST 36.0 IU/L (15-37); BILIRUBIN TOTAL 0.7 mg/dL (0.2-1.0); BLOOD UREA NITROGEN,BUN 11.0 mg/dL (7.0-18.0); CARBON DIOXIDE,CO2 31.4 mmol/L (21.0-32.0); CHLORIDE,CL 102.0 mmol/L (98-107); CREATININE 1.2 mg/dL (0.8-1.3); EST CRCL DRUG DOSING (CG) 44.33 mL/min; GLUCOSE RANDOM 98.0 mg/dL (74-106); POTASSIUM,K 3.5 mmol/L (3.5-5.1); PROTEIN TOTAL,TP 6.5 g/dL (6.4-8.2); SODIUM,NA 143.0 mmol/L (136-148)
[2025-07-30 06:36] LABS: ESTIMATED GFR 60.0 mL/min (>60)
[2025-07-31 09:04] LABS: BASOPHILS ABSOLUTE AUTO 0.02 K/uL (0.00-0.20); BASOPHILS PERCENT AUTO 0.2 % (0.0-1.0); EOSINOPHILS ABSOLUTE AUTO 0.15 K/uL (0.00-0.45); EOSINOPHILS PERCENT AUTO 1.7 % (0.0-6.0); IMMATURE GRAN ABSOLUTE AUTO 0.11 K/uL (0.00-0.05); IMMATURE GRAN PERCENT AUTO 1.2 % (0.0-0.4); LYMPHOCYTES ABSOLUTE AUTO 1.41 K/uL (1.00-4.80); LYMPHOCYTES PERCENT AUTO 15.9 % (24.0-44.0); MEAN PLATELET VOLUME 8.9 fL (9.4-12.4); MONOCYTES ABSOLUTE AUTO 0.67 K/uL (0.00-0.80); MONOCYTES PERCENT AUTO 7.5 % (0.0-8.0); NEUTROPHILS ABSOLUTE AUTO 6.53 K/uL (1.80-7.70); NEUTROPHILS PERCENT AUTO 73.5 % (41.0-71.0); NRBC ABSOLUTE 0.00 K/uL (0.00-0.02); NRBC PERCENT 0.0 /100WBC (0.0-0.2); PLATELET COUNT,PLT 221 K/uL (150-400); RED BLOOD CELL COUNT 3.66 M/uL (4.52-5.90); WHITE BLOOD CELL COUNT,WBC 8.89 K/uL (3.9-11.3)
[2025-07-31 09:31] LABS: A/G RATIO 0.7 (0.9-1.6); ALANINE AMINOTRANSFERASE,ALT 79.0 IU/L (14-63); ASPARTATE AMNIOTRANSFERASE,AST 49.0 IU/L (15-37); BILIRUBIN TOTAL 0.7 mg/dL (0.2-1.0); BLOOD UREA NITROGEN,BUN 9.0 mg/dL (7.0-18.0); CARBON DIOXIDE,CO2 31.3 mmol/L (21.0-32.0); CHLORIDE,CL 102.0 mmol/L (98-107); CREATININE 1.1 mg/dL (0.8-1.3); EST CRCL DRUG DOSING (CG) 48.36 mL/min; GLUCOSE RANDOM 122.0 mg/dL (74-106); POTASSIUM,K 3.6 mmol/L (3.5-5.1); PROTEIN TOTAL,TP 7.0 g/dL (6.4-8.2); SODIUM,NA 140.0 mmol/L (136-148)
[2025-07-31 09:32] LABS: ESTIMATED GFR 66.0 mL/min (>60)
[2025-08-01 05:33] LABS: BASOPHILS ABSOLUTE AUTO 0.04 K/uL (0.00-0.20); BASOPHILS PERCENT AUTO 0.5 % (0.0-1.0); EOSINOPHILS ABSOLUTE AUTO 0.09 K/uL (0.00-0.45); EOSINOPHILS PERCENT AUTO 1.1 % (0.0-6.0); IMMATURE GRAN ABSOLUTE AUTO 0.11 K/uL (0.00-0.05); IMMATURE GRAN PERCENT AUTO 1.4 % (0.0-0.4); LYMPHOCYTES ABSOLUTE AUTO 1.25 K/uL (1.00-4.80); LYMPHOCYTES PERCENT AUTO 15.5 % (24.0-44.0); MEAN PLATELET VOLUME 8.9 fL (9.4-12.4); MONOCYTES ABSOLUTE AUTO 0.71 K/uL (0.00-0.80); MONOCYTES PERCENT AUTO 8.8 % (0.0-8.0); NEUTROPHILS ABSOLUTE AUTO 5.84 K/uL (1.80-7.70); NEUTROPHILS PERCENT AUTO 72.7 % (41.0-71.0); NRBC ABSOLUTE 0.00 K/uL (0.00-0.02); NRBC PERCENT 0.0 /100WBC (0.0-0.2); PLATELET COUNT,PLT 229 K/uL (150-400); RED BLOOD CELL COUNT 3.56 M/uL (4.52-5.90); WHITE BLOOD CELL COUNT,WBC 8.04 K/uL (3.9-11.3)
[2025-08-01 06:06] LABS: ALANINE AMINOTRANSFERASE,ALT 65.0 IU/L (14-63); ASPARTATE AMNIOTRANSFERASE,AST 36.0 IU/L (15-37); BILIRUBIN TOTAL 0.8 mg/dL (0.2-1.0); BLOOD UREA NITROGEN,BUN 9.0 mg/dL (7.0-18.0); CARBON DIOXIDE,CO2 29.2 mmol/L (21.0-32.0); CHLORIDE,CL 101.0 mmol/L (98-107); CREATININE 1.1 mg/dL (0.8-1.3); EST CRCL DRUG DOSING (CG) 48.36 mL/min; GLUCOSE RANDOM 126.0 mg/dL (74-106); POTASSIUM,K 3.7 mmol/L (3.5-5.1); PROTEIN TOTAL,TP 6.6 g/dL (6.4-8.2); SODIUM,NA 140.0 mmol/L (136-148)
[2025-08-01 06:12] LABS: A/G RATIO 0.7 (0.9-1.6); ESTIMATED GFR 66.0 mL/min (>60)
[2025-08-01 12:06] VITALS: BP 129/75; PULSE 70
== END 2025-08-01 14:45 | disposition home or self-care (01) | DRG 948 ==
LOC: MW.ED 20:19 → OBSVTOIN 07-26 04:53 → MW.MS 07-26 04:53
PROVIDERS: ADMIT Internal Medicine; ATTEND Internal Medicine
DX: R53.1 Weakness (principal); R78.81 Bacteremia; E86.0 Dehydration; R26.2 Difficulty in walking, not elsewhere classified; E83.42 Hypomagnesemia; R79.89 Other specified abnormal findings of blood chemistry; R94.31 Abnormal electrocardiogram [ECG] [EKG]; H91.90 Unspecified hearing loss, unspecified ear; E78.00 Pure hypercholesterolemia, unspecified; I10 Essential (primary) hypertension; F17.200 Nicotine dependence, unspecified, uncomplicated; G47.30 Sleep apnea, unspecified; N40.0 Benign prostatic hyperplasia without lower urinary tract symptoms; M19.90 Unspecified osteoarthritis, unspecified site; Z98.49 Cataract extraction status, unspecified eye; Z90.49 Acquired absence of other specified parts of digestive tract; Z79.899 Other long term (current) drug therapy; Z79.82 Long term (current) use of aspirin; Z98.890 Other specified postprocedural states
CPT/HCPCS: 36415; 70450; 70450-26; 70470; 70470-26; 71045; 71045-26; 71275; 71275-26; 74018; 74018-26; 74177; 74177-26; 80053; 80202; 81001; 82550; 82947; 83605; 83690; 83735; 83880; 84100; 84443; 84484; 85025; 87040; 87077; 87086; 87186; 93005; 93010; 96361; 96365; 96375; 97162-GP; 97530-GP; 99222; 99232; 99239; 99285; 99285-25; A9270-GY; G0378; J0696; J2405; J3374; J3375; J3475; J7030; J7050; J7120; Q9967